=== PATIENT | female | born 1960 | race African-American/Black ===

== ENCOUNTER 2016-11-18 12:05 | Inpatient (IN) | payer OTHER ==
[2016-11-18 12:26] VITALS: BMI 26.1
[2016-11-18] MEDS ORDERED: ASPIRIN 81 MG CHEWABLE TABLETS PO ONE (12:59)
[2016-11-18] MEDS ORDERED: ASPIRIN 81 MG CHEWABLE TABLETS ONE (13:28)
--- NOTE | 2016-11-18 13:33 | PDOC ---
History of Present Illness <Jenna Ureña - Last Filed: 11/18/16 14:55> - General History Source: Patient Exam Limitations: No Limitations <Giovanni Keller - Last Filed: 11/18/16 15:20> - General Chief Complaint: Chest Pain Stated Complaint: CHEST PAIN Time Seen by Provider: 11/18/16 12:58 - History of Present Illness Initial Comments: 11/18/16 13:34 56y F hx of HTN, DM, HL, CAD s/p CABG, CVA with residual L sided weakness presents with chest pain. The pt was feeling well this morning and went to her physical therpay. After therapy as she was leaving she developed some left sided chest pressure that lasted for several minutes. Pt endorses some mild sob and nausea, There was no associated vomiting, diaphoresis. Pt notes she had simialr sypmtoms several years ago. Pt takes baby ASA (and took one this AM) Pt states she is currently pain free. PMD: Dr. العلي Cards: Gege ?Demond? (KrishnaGiovanni) Past History <Jenna Ureña - Last Filed: 11/18/16 14:55> - Past Medical History CVA: Yes (LEFT SIDED PARALYSIS) Diabetes: Yes HTN: Yes Hypercholesterolemia: Yes - Surgical History Cardiac Surgery: Yes (TRIPLE BYPASS) - Psycho/Social/Smoking Cessation Hx Suicidal Ideation: No Smoking History: Unknown if ever smoked <Giovanni Keller - Last Filed: 11/18/16 15:20> - Past Medical History Allergies/Adverse Reactions: Allergies Allergy/AdvReac Type Severity Reaction Status Date / Time codeine Allergy Verified 11/18/16 12:27 lactose AdvReac Verified 11/18/16 12:27 Home Medications: Ambulatory Orders Amlodipine Besylate [Norvasc -] 10 mg PO DAILY 11/18/16 Aspirin [ASA -] 81 mg PO DAILY 11/18/16 Atorvastatin Calcium 40 mg PO DAILY 11/18/16 Cyclobenzaprine HCl [Flexeril 10 mg] 10 mg PO TID 11/18/16 Gabapentin [Neurontin -] 300 mg PO BID 11/18/16 Isosorbide Mononitrate [Imdur -] 60 mg PO DAILY 11/18/16 Levetiracetam [Keppra] 750 mg PO BID 11/18/16 Metformin HCl [Metformin HCl ER] 500 mg PO BID 11/18/16 Metoprolol Succinate [Toprol Xl -] 25 mg PO DAILY 11/18/16 Ramipril [Altace] 10 mg PO DAILY 11/18/16 Sennosides/Docusate Sodium [Senna Plus Tablet] 1 each PO HS 11/18/16 Review of Systems <Jenna Ureña - Last Filed: 11/18/16 14:55> - Review of Systems Able to Perform ROS?: Yes <Giovanni Keller - Last Filed: 11/18/16 15:20> - Review of Systems Comments:: 11/18/16 13:40 Constitutional - no reported Fever, Chills, HEENT: no reported vision changes, sore throat Respiratory: + sob, no reported cough, hemoptysis Cardiac: +chest pain, no reported palpitations, light headedness, leg swelling Abd/GI: +nausea, no reported abd pain, vomiting, blood per rectum, melena, diarrhea : no reported dysuria, frequency, discharge Musculskelatal - no reported back pain, joint swelling skin - no reported bruising, erythema, rash neurological: no reported headache, numbness, focal weakness, tingling, ataxia, hematologic: no reported anemia, easy bruising, easy bleeding (Giovanni Keller) *Physical Exam <Jenna Ureña - Last Filed: 11/18/16 14:55> <Giovanni Keller - Last Filed: 11/18/16 15:20> - Vital Signs Last Vital Signs Temp Pulse Resp BP Pulse Ox 66 18 133/94 100 11/18/16 12:05 11/18/16 12:05 11/18/16 12:05 11/18/16 12:05 - Physical Exam Comments: 11/18/16 13:40 GENERAL: The patient is awake, alert, and fully oriented, Nontoxic - in no acute distress. HEAD: Normocephalic, atraumatic. EYES: extraocular movements intact, sclera anicteric, conjunctiva clear. ENT: Normal voice, Moist mucous membranes. NECK: Normal range of motion, supple LUNGS: Breath sounds equal, clear to auscultation bilaterally. No wheezes, no rhonchi, no rales. HEART: Regular rate and rhythm, normal S1 and S2 without murmur, rub or gallop. ABDOMEN: Soft, nontender, normoactive bowel sounds. No guarding, no rebound. . No CVA tenderness EXTREMITIES: Normal range of motion, no edema. No clubbing or cyanosis. No cords, erythema, or tenderness. NEUROLOGICAL: decraesed sensation on L face/extremities, paralysis of LUE, 4/5 weakness of LLE (chronic) PSYCH: Normal mood, flat affect. SKIN: Warm, Dry, normal turgor, (Giovanni Keller) Heart Score/ECG Review <Jenna Ureña - Last Filed: 11/18/16 14:55> <Giovanni Keller - Last Filed: 11/18/16 15:20> - ECG Impressions Comment:: 11/18/16 13:43 Twelve-lead EKG was performed and reviewed by me. There is normal sinus rhythm with a normal rate. rate of 67 Left axis deviation The intervals are normal. There is normal R wave progression (Giovanni Keller) ED Treatment Course - LABORATORY CBC & Chemistry Diagram: 11/18/16 13:20 11/18/16 13:20 <Jenna Ureña - Last Filed: 11/18/16 14:55> - LABORATORY CBC & Chemistry Diagram: 11/18/16 13:20 11/18/16 13:20 <Giovanni Keller - Last Filed: 11/18/16 15:20> - ADDITIONAL ORDERS Additional order review: Laboratory Results 11/18/16 11/18/16 13:20 13:20 INR 1.17 H Sodium 141 Potassium 4.0 Chloride 105 Carbon Dioxide 25 Anion Gap 11 BUN 15 Creatinine 0.9 Creat Clearance w eGFR > 60 Random Glucose 89 Calcium 8.4 L Magnesium 1.7 L Total Bilirubin 0.4 AST 28 ALT 27 Alkaline Phosphatase 69 Creatine Kinase 585 H CK-MB (CK-2) 2.658 Troponin I 0.03 Total Protein 7.8 Albumin 4.1 11/18/16 13:20 RBC 4.04 MCV 82.6 MCHC 34.5 RDW 13.3 MPV 7.2 L Neutrophils % 32.3 L Lymphocytes % 57.5 H Monocytes % 7.2 Eosinophils % 1.8 Basophils % 1.2 - RADIOLOGY Radiology Studies Ordered: Category Date Time Status CHEST X-RAY PORTABLE* [RAD] Stat Radiology 11/18/16 12:59 Completed Radiograph Interpretation: 11/18/16 14:11 Chest XRay As reviewed by Dr. Pavan Reddy IMPRESSION: Sternal wires. Uncoiled thoracic aorta. No evidence of widening of the superior mediastinum. The cardiac silhouette is not enlarged. No evidence of CHF, pulmonary infiltrates, large pleural effusion or pneumothorax. EKG leads are noted. Intact visualized osseous structures. (Jenna Ureña) - Medications Given in the ED: ED Medications Discontinued Medications Generic Name Dose Route Start Last Admin Trade Name Freq PRN Reason Stop Dose Admin Aspirin 162 mg 11/18/16 12:59 11/18/16 13:30 Asa - PO 11/18/16 13:00 162 mg ONCE ONE Administration Medical Decision Making <Jenna Ureña - Last Filed: 11/18/16 14:55> <Giovanni Keller - Last Filed: 11/18/16 15:20> - Medical Decision Making 11/18/16 14:44 Dr. Lagos was called at his office at 2:44. Awaiting call back. 11/18/16 14:55 Dr. Barnes, covering Dr. Lagos, returned call and spoke to Dr. Keller about the patient's care. (Jenna Ureña) 11/18/16 13:41 56y M hx of htn, hl, cva with residual waekness, cad s/p cabg presents with L sided chest pressure currently resolved pt w/. normal exam (chronic weakness) will r/o mi ekg nonischemic based on risk factors likely observation will discuss with cardiology pt given ASA 11/18/16 15:[address] mccormack agrees with observation for SANDRA will discuss w/ dr. Wiley regarding admission stable for tele 11/18/16 15:20 case kurt wiley agree with observation in tele Case discussed in detail with admitting physician including history, physical exam and ancillary studies. Admitting physician has assumed care for the patient, will follow all pending diagnostics and will complete the evaluation and treatment. (Giovanni Keller) *DC/Admit/Observation/Transfer <Jenna Ureña - Last Filed: 11/18/16 14:55> - Discharge Dispostion Admit: Yes <Giovanni Keller - Last Filed: 11/18/16 15:20> Diagnosis at time of Disposition: Chest pain Qualifiers: Chest pain type: unspecified Qualified Code(s): R07.9 - Chest pain, unspecified - Discharge Dispostion Decision to Admit order Date/Time: Decision to Admit Order Category Date Time Status Decision to Admit to Hospital Routine Admission 11/18/16 15:15 Active - Referrals Referrals: Mildred العلي MD [Primary Care Provider] - - Patient Instructions Printed Discharge Instructions: DI for Chest Pain
[2016-11-18 13:44] LABS: BASOPHIL 1.2 % (0-2.0); EOSINOPHIL 1.8 % (0-4.5); MCH 28.5 pg (25.7-33.7); MCHC 34.5 g/dl (32.0-36.0); MEAN CELL VOLUME 82.6 fl (80-96); MEAN PLT VOLUME 7.2 fl (7.5-11.1); NEUTROPHILS 32.3 % (42.8-82.8); PLATELET COUNT 198 K/MM3 (134-434); RDW 13.3 % (11.6-15.6); WHITE BLOOD COUNT 4.6 K/mm3 (4.0-10.0)
[2016-11-18 13:56] LABS: INR 1.17 (0.82-1.09); PROTHROMBIN TIME (PATIENT) 12.9 SEC (9.98-11.88)
[2016-11-18 14:23] LABS: ALBUMIN 4.1 g/dl (3.4-5.0); ANION GAP 11 (8-16); BILIRUBIN,TOTAL 0.4 mg/dL (0.2-1.0); CALCIUM 8.4 mg/dL (8.5-10.1); CO2 25 mmol/L (21-32); COCKROFT - GAULT 80.9625; CREATININE 0.9 mg/dL (0.55-1.02); GLUCOSE,RANDOM 89 mg/dL (74-106); MAGNESIUM 1.7 mg/dL (1.8-2.4); SGOT/AST 28 U/L (15-37); SGPT/ALT 27 U/L (12-78); TOT PROT 7.8 g/dl (6.4-8.2)
[2016-11-18 14:25] LABS: ALK PHOS 69 U/L (45-117); TROPONIN I 0.03 ng/ml (0.00-0.05)
--- NOTE | 2016-11-18 15:18 | EKG ---
Test Reason : Blood Pressure : / mmHG Vent. Rate : 067 BPM Atrial Rate : 067 BPM P-R Int : 150 ms QRS Dur : 092 ms QT Int : 412 ms P-R-T Axes : 027 -34 091 degrees QTc Int : 435 ms NORMAL SINUS RHYTHM POSSIBLE LEFT ATRIAL ENLARGEMENT LEFT AXIS DEVIATION ABNORMAL QRS-T ANGLE, CONSIDER PRIMARY T WAVE ABNORMALITY ABNORMAL ECG NO PREVIOUS ECGS AVAILABLE Confirmed by SHELLEY LOPEZ MD ([id number]) on 11/18/2016 3:18:01 PM Referred By: Confirmed By:SHELLEY LOPEZ MD
[2016-11-18] MEDS ORDERED: ACETAMINOPHEN 325 MG TABLET (FP) PO PRN (15:54)
--- NOTE | 2016-11-18 16:01 | HP ---
Admitting History and Physical - Primary Care Physician PCP: Mildred العلي - Admission Chief Complaint: my chest hurt History of Present Illness: Ms Naranjo is a very pleasant 56 year old female who comes in from physical therapy with chest pain. She says it was located on the left side of her chest. It was a pressure like pain. It was 8/10 in intensity. It came on with exertion , but rest did not relieve it. She is unsure if anything exacerbated or relieved it and it lasted about 30 minutes. The pain did not radiate. It was associated with lightheadedness and shortness of breath. She felt a similar pain in the past when she had an AMI. She denies passing out, dizziness, fevers , chills, coughing, palpitations, sweating, abdominal pain, nausea, vomiting, diarrhea, constipation, difficulty or pain on urination, or swelling. She has chronic L sided paralysis from previous CVA that is unchanged. History Source: Patient Limitations to Obtaining History: No Limitations - Past Medical History DOCTOR OF OPTOMETRY: Yes: CVA, Seizure Cardiovascular: Yes: CAD, HTN, Hyperlipdemia Endocrine: Yes: Diabetes Mellitus - Past Surgical History Past Surgical History: Yes: CABG, Cholecystectomy - Smoking History Smoking history: Unknown if ever smoked Have you smoked in the past 12 months: No - Alcohol/Substance Use Hx Alcohol Use: No History of Substance Use: reports: None - Social History ADL: Independent History of Recent Travel: No Home Medications - Allergies Allergies/Adverse Reactions: Allergies Allergy/AdvReac Type Severity Reaction Status Date / Time codeine Allergy Verified 11/18/16 12:27 lactose AdvReac Verified 11/18/16 12:27 - Home Medications Home Medications: Ambulatory Orders Amlodipine Besylate [Norvasc -] 10 mg PO DAILY 11/18/16 Aspirin [ASA -] 81 mg PO DAILY 11/18/16 Atorvastatin Calcium 40 mg PO DAILY 11/18/16 Cyclobenzaprine HCl [Flexeril 10 mg] 10 mg PO TID 11/18/16 Gabapentin [Neurontin -] 300 mg PO BID 11/18/16 Isosorbide Mononitrate [Imdur -] 60 mg PO DAILY 11/18/16 Levetiracetam [Keppra] 750 mg PO BID 11/18/16 Metformin HCl [Metformin HCl ER] 500 mg PO BID 11/18/16 Metoprolol Succinate [Toprol Xl -] 25 mg PO DAILY 11/18/16 Ramipril [Altace] 10 mg PO DAILY 11/18/16 Sennosides/Docusate Sodium [Senna Plus Tablet] 1 each PO HS 11/18/16 Family Disease History - Family Disease History Family Disease History: Diabetes: Grandparent, Heart Disease: Father (pacemaker) , Other: Mother (HTN) Review of Systems Findings/Remarks: Full review of systems obtained, as per HPI and otherwise negative Physical Examination Vital Signs: Vital Signs Temperature Pulse Rate 66 11/18/16 12:05 Respiratory Rate 18 11/18/16 12:05 Blood Pressure 133/94 11/18/16 12:05 O2 Sat by Pulse Oximetry (%) 100 11/18/16 12:05 Constitutional: Yes: Well Nourished, No Distress, Calm Eyes: Yes: Conjunctiva Clear, EOM Intact, PERRL HENT: Yes: Atraumatic, Normocephalic Cardiovascular: Yes: Regular Rate and Rhythm. No: Gallop, Murmur, Rub Respiratory: Yes: Regular, CTA Bilaterally. No: Rales, Rhonchi, Wheezes Gastrointestinal: Yes: Normal Bowel Sounds, Soft. No: Distention, Tenderness Extremities: Yes: WNL Edema: No ...Motor Strength: LUE (0/5), LLE (0/5) Labs: Laboratory Results - last 24 hr 11/18/16 11/18/16 11/18/16 13:20 13:20 13:20 WBC 4.6 RBC 4.04 Hgb 11.5 Hct 33.3 MCV 82.6 MCHC 34.5 RDW 13.3 Plt Count 198 MPV 7.2 L Neutrophils % 32.3 L Lymphocytes % 57.5 H Monocytes % 7.2 Eosinophils % 1.8 Basophils % 1.2 INR 1.17 H Sodium 141 Potassium 4.0 Chloride 105 Carbon Dioxide 25 Anion Gap 11 BUN 15 Creatinine 0.9 Creat Clearance w eGFR > 60 Random Glucose 89 Calcium 8.4 L Magnesium 1.7 L Total Bilirubin 0.4 AST 28 ALT 27 Alkaline Phosphatase 69 Creatine Kinase 585 H CK-MB (CK-2) 2.658 Troponin I 0.03 Total Protein 7.8 Albumin 4.1 Imaging - Results Chest X-ray: Report Reviewed, Image Reviewed EKG: Image Reviewed Problem List - Problems (1) Chest pain Assessment/Plan: -patient with history of AMI/CAD with 3v CABG in past -states pain is similar today -chest pain currently resolved -first set of enzymes negative -check cardiac enzymes x3 -monitor on telemetry -cardiology consult -will make npo in case needs stress test Code(s): R07.9 - CHEST PAIN, UNSPECIFIED Qualifiers: Chest pain type: unspecified Qualified Code(s): R07.9 - Chest pain, unspecified (2) CAD (coronary artery disease) Assessment/Plan: -will continue home medications -cardiology consulted Code(s): I25.10 - ATHSCL HEART DISEASE OF [place] CORONARY ARTERY W/O ANG PCTRS (3) HTN (hypertension) Assessment/Plan: -continue ramipril -continue toprol -continue imdur -continue norvasc Code(s): I10 - ESSENTIAL (PRIMARY) HYPERTENSION (4) Diabetes Assessment/Plan: -diabetic diet -will hold metformin in case needs contrast Code(s): E11.9 - TYPE 2 DIABETES MELLITUS WITHOUT COMPLICATIONS (5) HLD (hyperlipidemia) Assessment/Plan: -continue lipitor Code(s): E78.5 - HYPERLIPIDEMIA, UNSPECIFIED (6) CVA, old, hemiparesis Assessment/Plan: -continue aspirin and lipitor Code(s): I69.359 - HEMIPLGA FOLLOWING CEREBRAL INFARCTION AFFECTING UNSP SIDE (7) Seizure Assessment/Plan: -continue gabapentin and keppra Code(s): R56.9 - UNSPECIFIED CONVULSIONS Assessment/Plan Dispo -possible discharge tomorrow pending cardiac enzymes and cardiology evaluation
--- NOTE | 2016-11-18 18:14 | CON.CARD ---
Cardiology Consult (text) - Consultation Consultation Note: CC: CP 56 yo with h/o Coronary artery disease s/p CABG 02/2014, htn, hl, cerebrovascular disease (TIA in 2013, ischemic right posterior temporo-parietal stroke in 05/2015 with hemorrhagic conversion now with residual left sided weakness/numbness and complicated by post-CVA seizures - seeing Dr Mccarthy), lt innominate vein injury repair 08/2014, Left UE DVT s/p 6 months of coumadin, GERD, Cholecystectomy who p/w CP. CP: left sided pressure, 8/10 in intensity. It came on with exertion at physical therapy, but rest did not relieve it. Lasted 30 minutes. The pain did not radiate. It was associated with shortness of breath/choking sensation in throat. Similar to pain in the past when she had an AMI. Also has similar discomfort when she lies flat, chronic symptom. Different from prior reflux discomfort. no further cp. She denies palps, dizziness, le edema, bruner at baseline, bleeding. She denies recent fevers, chills, sweats, congestion, coughing, abdominal discomfort, nausea, vomiting, diarrhea, constipation, rashes. She has chronic L sided paralysis/numbness from previous CVA that is unchanged. recently had asa increased to 325 mg because of cerebrovascular disease. at baseline walkes with cane in the home, wheelchair outside the home. New patient to Dr. Love this year pmhx/pshx: per hpi Social history former smoker, lives by herself, gets [employer] services for 7 hrs everyday. Family Disease History: Diabetes: Grandparent, Heart Disease: Father (pacemaker) , Other: Mother (HTN) ros: per hpi - Allergies Allergies/Adverse Reactions: Allergies Allergy/AdvReac Type Severity Reaction Status Date / Time codeine Allergy Verified 11/18/16 12:27 lactose AdvReac Verified 11/18/16 12:27 Ambulatory Orders Amlodipine Besylate [Norvasc -] 10 mg PO DAILY 11/18/16 Aspirin [ASA -] 81 mg PO DAILY 11/18/16 Atorvastatin Calcium 40 mg PO DAILY 11/18/16 Cyclobenzaprine HCl [Flexeril 10 mg] 10 mg PO TID 11/18/16 Gabapentin [Neurontin -] 300 mg PO BID 11/18/16 Isosorbide Mononitrate [Imdur -] 60 mg PO DAILY 11/18/16 Levetiracetam [Keppra] 750 mg PO BID 11/18/16 Metformin HCl [Metformin HCl ER] 500 mg PO BID 11/18/16 Metoprolol Succinate [Toprol Xl -] 25 mg PO DAILY 11/18/16 Ramipril [Altace] 10 mg PO DAILY 11/18/16 Sennosides/Docusate Sodium [Senna Plus Tablet] 1 each PO HS 11/18/16 Per office notes, she is on ASA, ramipril 10mg daily, atorvastatin 20mg daily, toprol 25mg daily, imdur 60mg daily, amlodipine 10, Current Medications Acetaminophen (Tylenol -) 650 mg PO Q4H PRN PRN Reason: FEVER OR PAIN Amlodipine Besylate (Norvasc -) 10 mg PO DAILY [facility] Aspirin (Asa -) 81 mg PO DAILY [facility] Atorvastatin Calcium (Lipitor -) 40 mg PO DAILY [facility] Cyclobenzaprine HCl (Flexeril -) 10 mg PO TID [facility] Gabapentin (Neurontin -) 300 mg PO BID [facility] Isosorbide Mononitrate (Imdur -) 60 mg PO DAILY [facility] Levetiracetam (Keppra -) 750 mg PO BID [facility] Metoprolol Succinate (Toprol Xl -) 25 mg PO DAILY [facility] Ramipril (Altace -) 10 mg PO DAILY [facility] Senna/Docusate Sodium (Pericolace -) 1 tablet PO HS [facility] Vital Signs - 24 hr 11/18/16 11/18/16 12:05 17:29 Temperature 98.1 F Pulse Rate 66 67 Respiratory 18 18 Rate Blood Pressure 133/94 135/90 O2 Sat by Pulse 100 96 Oximetry (%) Intake & Output 11/16/16 11/17/16 11/18/16 11/19/16 07:59 07:59 07:59 07:59 Weight 162 lb nad, calm jvd flat, neck supple ctab, nl effort rrr nl s1, s2 no mrg + bs soft nt nd ext without e/c/c + dp/pt no carotid bruits aaox3 no jaundice, diaphoresis ++ weakness of LUE, + weakness of LLE CBC, BMP 11/18/16 13:20 11/18/16 13:20 Laboratory Tests 11/18/16 13:20 Magnesium 1.7 L Total Bilirubin 0.4 AST 28 ALT 27 Alkaline Phosphatase 69 Creatine Kinase 585 H CK-MB (CK-2) 2.658 Troponin I 0.03 Albumin 4.1 EKG: SR, LAD,non-specific t wave abnormalities, unchanged from prior office ekg' s tele: sr CXR: clear lung burger. office echo 08/2016: mod lvh. nl lv size/fn. Impaired relaxation. Can't exclude RWMA. RV not well seen. Aneurysmal IAS. 1+ tr. Nl rvsp. 56 yo with h/o Coronary artery disease s/p CABG 02/2014, htn, hl, cerebrovascular disease (TIA in 2013, ischemic right posterior temporo-parietal stroke in 05/2015 with hemorrhagic conversion now with residual left sided weakness and numbness and complicated by post-CVA seizure - seeing Dr Mccarthy), lt innominate vein injury repair 08/2014, Left UE DVT s/p 6 months of coumadin, GERD, Cholecystectomy who p/w CP. CP/CAD s/p CABG 2013 - occurred with exertion, patient high risk and with known CAD. 1st set of cardiac enzymes negative. ekg stable. Con't SANDRA. Plan for pharm stress in am. - If needs cath, will need to clarify cabg anatomy. - Elevated CK. Recent lipid panel at office shows suppressed LDL 25. Will reduce dose of atorvastatin in case it is contributing to elevated CK, chest discomfort. - con't ASA (325 per outpatient neuro for cerebrovascular disease), ramipril 10mg daily, statin, bb, imdur, norvasc. Can uptitrate anti-anginal regimen if cp recurs or stress test positive. HTN - controlled, med adjustments as mentioned. HL - recent LDL low 25, but TG elevated 219, hdl 24. Also with elevated CK. As mentioned above, will try downtitrating statin dosing unless stress test positive. - Will add lovaza for TG/HDL abnormalities and switch metoprolol to carvedilol. Check tsh. prior CVA - with residual left arm weakness - cont ASA, atorva - seizures controlled on keppra. Followed by Dr Mccarthy
[2016-11-18 21:55] LABS: TROPONIN I 0.03 ng/ml (0.00-0.05)
[2016-11-18] MEDS ORDERED: CARVEDILOL 3.125 MG TABLET (FP) ONE (21:58)
[2016-11-18] MEDS ORDERED: CYCLOBENZAPRINE HCL 10 MG TABLET (FP) ONE (21:59)
[2016-11-18] MEDS ORDERED: levETIRAcetam 500 MG TABLET (FP) PO ONE (21:59)
[2016-11-18] MEDS ORDERED: ATORVASTATIN CA 40 MG TABLET (FP) ONE (21:59)
[2016-11-18] MEDS ORDERED: PATIENT'S OWN MEDICATION (NON-FORMULARY) (Metformin Hcl [Metformin Hcl Er] 500 MG) PO SCH (22:00)
[2016-11-18] MEDS ORDERED: ATORVASTATIN CA 40 MG TABLET (FP) PO SCH (22:00)
[2016-11-18] MEDS ORDERED: GABAPENTIN 100 MG CAPSULE (FP) ONE (22:01)
[2016-11-18] MEDS: CYCLOBENZAPRINE HCL 10 MG TABLET (FP) PO SCH (22:14)
[2016-11-18] MEDS: CARVEDILOL 3.125 MG TABLET (FP) PO SCH (22:14)
[2016-11-18] MEDS: levETIRAcetam 250 MG TABLET (FP) PO SCH (22:14)
[2016-11-18] MEDS: GABAPENTIN 300 MG CAPSULE (FP) PO SCH (22:15)
[2016-11-18] MEDS: SENNOSIDES/DOCUSATE COMBO (SENNA PLUS) TABLET (UD) PO SCH (23:04)
[2016-11-18] MEDS: OMEGA-3 ACID ETHYL ESTERS (FATTY-ACIDS) 1 GM CAPSULE (FP) PO SCH (23:04)
[2016-11-18] MEDS: ATORVASTATIN CA 10 MG TABLET (FP) PO SCH (23:04)
[2016-11-19] MEDS: CYCLOBENZAPRINE HCL 10 MG TABLET (FP) PO SCH ×3 (06:48→21:26)
[2016-11-19 08:08] LABS: BASOPHIL 0.6 % (0-2.0); EOSINOPHIL 1.9 % (0-4.5); MCH 28.8 pg (25.7-33.7); MCHC 34.6 g/dl (32.0-36.0); MEAN CELL VOLUME 83.1 fl (80-96); MEAN PLT VOLUME 7.2 fl (7.5-11.1); NEUTROPHILS 38.2 % (42.8-82.8); PLATELET COUNT 183 K/MM3 (134-434); RDW 13.2 % (11.6-15.6); WHITE BLOOD COUNT 3.4 K/mm3 (4.0-10.0)
[2016-11-19 08:29] LABS: CALCIUM 8.5 mg/dL (8.5-10.1); COCKROFT - GAULT 91.086; CREATININE 0.8 mg/dL (0.55-1.02); MAGNESIUM 1.7 mg/dL (1.8-2.4); PHOSPHOROUS 3.3 mg/dL (2.5-4.9)
[2016-11-19 08:39] LABS: THYROID STIMULATING HORMONE 1.46 uIU/ml (0.358-3.74); TROPONIN I 0.03 ng/ml (0.00-0.05)
[2016-11-19] MEDS ORDERED: METOPROLOL SUCCINATE 25 MG TAB.SR.24H (FP) PO SCH (10:00)
[2016-11-19] MEDS ORDERED: DIPYRIDAMOLE STRESS TEST 42 MG in DEXTROSE 5%-WATER - 33.6 ML IVPB ONE (10:00)
[2016-11-19] MEDS ORDERED: ASPIRIN 81 MG CHEWABLE TABLETS PO SCH (10:00)
[2016-11-19] MEDS ORDERED: ISOSORBIDE MONONITRATE 60 MG TAB.SR.24H (FP) PO SCH (10:00)
[2016-11-19] MEDS ORDERED: ATORVASTATIN CA 40 MG TABLET (FP) PO SCH (10:00)
[2016-11-19] MEDS: ISOSORBIDE MONONITRATE 60 MG TAB.SR.24H (FP) PO SCH (14:45)
[2016-11-19] MEDS: OMEGA-3 ACID ETHYL ESTERS (FATTY-ACIDS) 1 GM CAPSULE (FP) PO SCH ×2 (14:45→21:26)
[2016-11-19] MEDS: CARVEDILOL 3.125 MG TABLET (FP) PO SCH ×2 (14:45→21:26)
[2016-11-19] MEDS: amLODIPine BESYLATE 10 MG TABLET (FP) PO SCH (14:45)
[2016-11-19] MEDS: GABAPENTIN 300 MG CAPSULE (FP) PO SCH ×2 (14:45→21:26)
[2016-11-19] MEDS: ASPIRIN 81 MG CHEWABLE TABLETS PO SCH (14:45)
[2016-11-19] MEDS: RAMIPRIL 5 MG CAPSULE (FP) PO SCH (14:46)
[2016-11-19] MEDS: levETIRAcetam 250 MG TABLET (FP) PO SCH ×2 (14:46→21:25)
--- NOTE | 2016-11-19 15:54 | DS ---
Physical Examination Vital Signs: Vital Signs Temperature 97.8 F 11/19/16 15:00 Pulse Rate 66 11/19/16 15:00 Respiratory Rate 20 11/19/16 15:00 Blood Pressure 127/86 11/19/16 15:00 O2 Sat by Pulse Oximetry (%) 97 11/19/16 08:00 Constitutional: Yes: Well Nourished, No Distress, Calm Cardiovascular: Yes: Regular Rate and Rhythm. No: Gallop, Murmur, Rub Respiratory: Yes: Regular, CTA Bilaterally. No: Rales, Rhonchi, Wheezes Gastrointestinal: Yes: Normal Bowel Sounds, Soft. No: Distention, Tenderness Extremities: Yes: WNL Edema: No Labs: CBC, BMP 11/19/16 07:45 11/19/16 07:45 Discharge Summary Reason For Visit: CHEST PAIN Current Active Problems CAD (coronary artery disease) (Acute) CVA, old, hemiparesis (Acute) Chest pain (Acute) Diabetes (Acute) HLD (hyperlipidemia) (Acute) HTN (hypertension) (Acute) Seizure (Acute) Hospital Course: (1) Chest pain Code(s): R07.9 - CHEST PAIN, UNSPECIFIED Qualifiers: Chest pain type: unspecified Qualified Code(s): R07.9 - Chest pain, unspecified (2) CAD (coronary artery disease) Code(s): I25.10 - ATHSCL HEART DISEASE OF [place] CORONARY ARTERY W/O ANG PCTRS (3) HTN (hypertension) Code(s): I10 - ESSENTIAL (PRIMARY) HYPERTENSION (4) Diabetes Code(s): E11.9 - TYPE 2 DIABETES MELLITUS WITHOUT COMPLICATIONS (5) HLD (hyperlipidemia) Code(s): E78.5 - HYPERLIPIDEMIA, UNSPECIFIED (6) CVA, old, hemiparesis Code(s): I69.359 - HEMIPLGA FOLLOWING CEREBRAL INFARCTION AFFECTING UNSP SIDE (7) Seizure Code(s): R56.9 - UNSPECIFIED CONVULSIONS Ms Naranjo is a very pleasant 56 year old female with history of CVA and CAD who comes in with chest pressure. She was at PT when she had a 30 minute episode of chest pressure. She presented to the ED and was admitted to telemetry under observation. Cardiac enzymes x3 were sent and negative. Her EKG was unchanged. She was seen by cardiology and underwent nuclear stress test. Was planning on discharge but cardiology reviewed and noted there was signs of ischemia. No discharge today. Condition: Good - Instructions Diet, Activity, Other Instructions: resume previous diet and activity Referrals: Bertin Love MD [Staff Physician] - Mildred لاعلي MD [Primary Care Provider] - - Home Medications Comprehensive Discharge Medication List: Ambulatory Orders Amlodipine Besylate [Norvasc -] 10 mg PO DAILY 11/18/16 Cyclobenzaprine HCl [Flexeril 10 mg] 10 mg PO TID 11/18/16 Gabapentin [Neurontin -] 300 mg PO BID 11/18/16 Isosorbide Mononitrate [Imdur -] 60 mg PO DAILY 11/18/16 Levetiracetam [Keppra] 750 mg PO BID 11/18/16 Metformin HCl [Metformin HCl ER] 500 mg PO BID 11/18/16 Ramipril [Altace] 10 mg PO DAILY 11/18/16 Sennosides/Docusate Sodium [Senna Plus Tablet] 1 each PO HS 11/18/16 Aspirin [ASA -] 325 mg PO DAILY tab.chew 11/19/16 Atorvastatin Ca [Lipitor] 5 mg PO HS #30 tablet 11/19/16 Carvedilol [Coreg -] 3.125 mg PO BID #60 tablet 11/19/16 [place]-3 Acid Ethyl Esters [Lovaza -] 2 gm PO BID #60 cap 11/19/16
--- NOTE | 2016-11-19 20:18 | PN ---
Progress Note (short form) - Note Progress Note: CC: CP S: + stress test today. No further cp. No sob, palps, dizziness Current Medications Acetaminophen (Tylenol -) 650 mg PO Q4H PRN PRN Reason: FEVER OR PAIN Amlodipine Besylate (Norvasc -) 10 mg PO DAILY [facility] Last Admin: 11/19/16 14:45 Dose: 10 mg Aspirin (Asa -) 325 mg PO DAILY [facility] Last Admin: 11/19/16 14:45 Dose: 325 mg Atorvastatin Calcium (Lipitor -) 5 mg PO HS [facility] Last Admin: 11/18/16 23:04 Dose: 5 mg Carvedilol (Coreg -) 3.125 mg PO BID [facility] Last Admin: 11/19/16 14:45 Dose: 3.125 mg Cyclobenzaprine HCl (Flexeril -) 10 mg PO TID [facility] Last Admin: 11/19/16 14:45 Dose: 10 mg Gabapentin (Neurontin -) 300 mg PO BID [facility] Last Admin: 11/19/16 14:45 Dose: 300 mg Isosorbide Mononitrate (Imdur -) 60 mg PO DAILY [facility] Last Admin: 11/19/16 14:45 Dose: 60 mg Levetiracetam (Keppra -) 750 mg PO BID [facility] Last Admin: 11/19/16 14:46 Dose: 750 mg Eakzo-3-Oovg Ethyl Esters (Lovaza -) 2 gm PO BID [facility] Last Admin: 11/19/16 14:45 Dose: 2 gm Ramipril (Altace -) 10 mg PO DAILY [facility] Last Admin: 11/19/16 14:46 Dose: 10 mg Senna/Docusate Sodium (Pericolace -) 1 tablet PO [facility] Last Admin: 11/18/16 23:04 Dose: 1 tablet Vital Signs - 24 hr 11/18/16 11/19/16 11/19/16 22:45 01:05 06:00 Temperature 98.2 F Pulse Rate 62 Pulse Rate [ 72 Apical] Respiratory 16 20 Rate Blood Pressure 128/85 Blood Pressure 144/98 [Right Arm] O2 Sat by Pulse 100 95 Oximetry (%) 11/19/16 11/19/16 11/19/16 07:56 08:00 15:00 Temperature 98.1 F 97.8 F Pulse Rate 55 L 66 Pulse Rate [ Apical] Respiratory 20 20 20 Rate Blood Pressure 123/77 127/86 Blood Pressure [Right Arm] O2 Sat by Pulse 97 Oximetry (%) 11/19/16 18:00 Temperature 97.9 F Pulse Rate 63 Pulse Rate [ Apical] Respiratory 20 Rate Blood Pressure 118/70 Blood Pressure [Right Arm] O2 Sat by Pulse Oximetry (%) Intake & Output 11/17/16 11/18/16 11/19/16 11/20/16 07:59 07:59 07:59 07:59 Intake Total 350 Balance 350 Weight 162 lb nad, calm jvd flat, neck supple ctab, nl effort rrr nl s1, s2 no mrg + bs soft nt nd ext without e/c/c + dp/pt no carotid bruits aaox3 no jaundice, diaphoresis ++ weakness of LUE, + weakness of LLE CBC, BMP 11/19/16 07:45 11/19/16 07:45 Laboratory Tests 11/18/16 11/19/16 21:07 07:45 Magnesium 1.7 L Creatine Kinase 551 H 490 H CK-MB (CK-2) 2.148 1.757 Troponin I 0.03 0.03 TSH 1.46 EKG: SR, LAD,non-specific t wave abnormalities, unchanged from prior office ekg' s tele: sr, pvc CXR: clear lung burger. stress: mod sized, mild intensity anterior ischemia. mild inferior ischemia. nl EF. office echo 08/2016: mod lvh. nl lv size/fn. Impaired relaxation. nl rv size/ fn. Aneurysmal IAS. 1+ tr. Nl rvsp. 56 yo with h/o Coronary artery disease s/p CABG with lt innominate vein injury repair 08/2014, NSTEMI 02/2014, htn, hl, cerebrovascular disease (TIA in 2013, ischemic right posterior temporo-parietal stroke in 05/2015 with hemorrhagic conversion now with residual left sided weakness/numbness and complicated by post-CVA seizures - seeing Dr Mccarthy), Left UE DVT s/p 6 months of coumadin, GERD, Cholecystectomy who p/w CP. CP/CAD s/p CABG 08/2014 - obtained medical records from [facility]: CABG details --> LAD-LINTON, sVG- OM1, SVG-OM2, SVG-PDA. Of note, severe LVH described in op report. - Cardiac enzymes negative. ekg stable. - CP occurred with exertion, patient high risk and with known CAD. + stress test with both anterior and inferior ischemia. Discussed case with both outpatient machine pack assembler and interventionalist. Will plan for cath on Tuesday. CABG anatomy clarified as mentioned above. - Elevated CK. Recent lipid panel at office shows suppressed LDL 25. Will reduce dose of atorvastatin in case it is contributing to elevated CK, chest discomfort. - con't ASA (325 per outpatient neuro for cerebrovascular disease), ramipril 10mg daily, statin, bb, imdur, norvasc. Can uptitrate anti-anginal regimen if cp recurs. HTN - controlled, on current meds. HL - recent LDL low 25, but TG elevated 219, hdl 24. Also with elevated CK. As mentioned above, --> downtitrated statin dosing here. (since stress test positive will increase back to 20 mg daily) - added lovaza for TG/HDL abnormalities and switched metoprolol to carvedilol. tsh wnl prior CVA - with residual left arm weakness - cont ASA, atorva - seizures controlled on keppra. Followed by Dr Mccarthy as outpatient
[2016-11-19] MEDS: SENNOSIDES/DOCUSATE COMBO (SENNA PLUS) TABLET (UD) PO SCH (21:26)
[2016-11-19] MEDS: ATORVASTATIN CA 10 MG TABLET (FP) PO SCH (21:26)
[2016-11-20] MEDS: CYCLOBENZAPRINE HCL 10 MG TABLET (FP) PO SCH ×3 (06:19→22:52)
[2016-11-20 08:06] LABS: CALCIUM 8.4 mg/dL (8.5-10.1)
[2016-11-20 08:10] LABS: COCKROFT - GAULT 80.9625; CREATININE 0.9 mg/dL (0.55-1.02); MAGNESIUM 1.9 mg/dL (1.8-2.4)
--- NOTE | 2016-11-20 08:17 | PN ---
Progress Note, Physician Chief Complaint: cp, cad History of Present Illness: no cp or sob denies palpitations, leg swelling - Current Medication List Current Medications: Active Medications Acetaminophen (Tylenol -) 650 mg PO Q4H PRN PRN Reason: FEVER OR PAIN Amlodipine Besylate (Norvasc -) [address] [facility] Last Admin: 11/19/16 14:45 Dose: 10 mg Aspirin (Asa -) [address] [facility] Last Admin: 11/19/16 14:45 Dose: 325 mg Atorvastatin Calcium (Lipitor -) 20 mg PO [facility] Carvedilol (Coreg -) 3.[address] [facility] Last Admin: 11/19/16 21:26 Dose: 3.125 mg Cyclobenzaprine HCl (Flexeril -) [address] [facility] Last Admin: 11/20/16 06:19 Dose: 10 mg Gabapentin (Neurontin -) [address] [facility] Last Admin: 11/19/16 21:26 Dose: 300 mg Isosorbide Mononitrate (Imdur -) [address] [facility] Last Admin: 11/19/16 14:45 Dose: 60 mg Levetiracetam (Keppra -) [address] [facility] Last Admin: 11/19/16 21:25 Dose: 750 mg Magnesium Oxide (Mag-Ox -) [address] [facility] Wwuhz-2-Rtvy Ethyl Esters (Lovaza -) [address] [facility] Last Admin: 11/19/16 21:26 Dose: 2 gm Ramipril (Altace -) [address] [facility] Last Admin: 11/19/16 14:46 Dose: 10 mg Senna/Docusate Sodium (Pericolace -) 1 tablet PO [facility] Last Admin: 11/19/16 21:26 Dose: 1 tablet - Objective Vital Signs: Vital Signs Temperature 97.6 F 11/20/16 05:49 Pulse Rate 58 L 11/20/16 05:49 Respiratory Rate 20 11/20/16 05:49 Blood Pressure 114/69 11/20/16 05:49 O2 Sat by Pulse Oximetry (%) 97 11/20/16 01:00 Constitutional: Yes: Well Nourished, No Distress, Calm Cardiovascular: Yes: Regular Rate and Rhythm, S1, S2. No: Gallop, Murmur Respiratory: Yes: Regular, CTA Bilaterally. No: Accessory Muscle Use, Rales, Wheezes Extremities: No: Cold Edema: No Neurological: Yes: Alert, Oriented Psychiatric: No: Agitated Labs: CBC, BMP 11/19/16 07:45 INR, PTT INR 1.17 (0.82-1.09) H 11/18/16 13:20 - ....Imaging EKG: Other (tele: NSR) Assessment/Plan EKG: SR, LAD,non-specific t wave abnormalities, unchanged from prior office ekg' s tele: sr, pvc CXR: clear lung burger. MPI here 11/27: mod sized, mild intensity anterior ischemia. mild inferior ischemia. nl EF. office echo 08/2016: mod lvh. nl lv size/fn. Impaired relaxation. nl rv size/ fn. Aneurysmal IAS. 1+ tr. Nl rvsp. 56 yo with h/o NSTEMI 2013 (PCI then?), coronary artery disease s/p CABG with lt innominate vein injury repair 08/2014, htn, hpl, cerebrovascular disease ( TIA in 2013, ischemic right posterior temporo-parietal stroke in 05/2015 with hemorrhagic conversion now with residual left sided weakness/numbness and complicated by post-CVA seizures - seeing Dr Mccarthy), Left UE DVT s/p 6 months of coumadin, GERD, Cholecystectomy who p/w CP. CP/CAD s/p CABG 08/2014 - obtained medical records [facility]: CABG details --> LAD-LINTON, SVG- OM1, SVG-OM2, SVG-PDA. - trop negative x3. ekg stable vs prior. - CP occurred with exertion, patient high risk and with known CAD. + stress test with both anterior and inferior ischemia. Dr Traore discussed case with both outpatient trade analyst (juan a) and interventionalist--plan for cath on Tuesday. - con't ASA (325 mg, per outpatient neuro for cerebrovascular disease), ramipril 10mg daily, statin, bb, imdur, norvasc. Can uptitrate anti-anginal regimen if cp recurs--currently asymptomatic HTN - controlled, on current meds. HL - recent LDL low 25, but TG elevated 219, hdl 24. Also with elevated CK --> downtitrated statin dosing here. (since stress test positive will increase back to 20 mg daily) - added lovaza for TG/HDL abnormalities and switched metoprolol to carvedilol. prior CVA - with residual left arm weakness - cont ASA, atorva - seizures controlled on keppra. Followed by Dr Mccarthy as outpatient
[2016-11-20] MEDS: OMEGA-3 ACID ETHYL ESTERS (FATTY-ACIDS) 1 GM CAPSULE (FP) PO SCH ×2 (09:57→22:52)
[2016-11-20] MEDS: MAGNESIUM OXIDE 400 MG TABLET (FP) PO SCH ×2 (09:57→22:53)
[2016-11-20] MEDS: amLODIPine BESYLATE 10 MG TABLET (FP) PO SCH (09:57)
[2016-11-20] MEDS: ISOSORBIDE MONONITRATE 60 MG TAB.SR.24H (FP) PO SCH (09:57)
[2016-11-20] MEDS: RAMIPRIL 5 MG CAPSULE (FP) PO SCH (09:57)
[2016-11-20] MEDS: levETIRAcetam 250 MG TABLET (FP) PO SCH ×2 (09:57→22:52)
[2016-11-20] MEDS: ASPIRIN 81 MG CHEWABLE TABLETS PO SCH (09:58)
[2016-11-20] MEDS: GABAPENTIN 300 MG CAPSULE (FP) PO SCH ×2 (09:59→22:53)
[2016-11-20] MEDS: CARVEDILOL 3.125 MG TABLET (FP) PO SCH ×2 (09:59→22:52)
--- NOTE | 2016-11-20 10:27 | PN ---
Progress Note, Physician History of Present Illness: Denies any chest pain, still notes occasionally gets chest "pressure" though. Stress test returned positive, so d/c home was cancelled and to be transferred for cardiac cath. - Current Medication List Current Medications: Active Medications Acetaminophen (Tylenol -) 650 mg PO Q4H PRN PRN Reason: FEVER OR PAIN Amlodipine Besylate (Norvasc -) 10 mg PO DAILY [facility] Last Admin: 11/20/16 09:57 Dose: 10 mg Aspirin (Asa -) 325 mg PO DAILY [facility] Last Admin: 11/20/16 09:58 Dose: 325 mg Atorvastatin Calcium (Lipitor -) 20 mg PO [facility] Carvedilol (Coreg -) 3.125 mg PO BID [facility] Last Admin: 11/20/16 09:59 Dose: 3.125 mg Cyclobenzaprine HCl (Flexeril -) 10 mg PO TID [facility] Last Admin: 11/20/16 06:19 Dose: 10 mg Gabapentin (Neurontin -) 300 mg PO BID [facility] Last Admin: 11/20/16 09:59 Dose: 300 mg Insulin Aspart (Novolog Vial Sliding Scale -) [facility] PRN Reason: Protocol Isosorbide Mononitrate (Imdur -) 60 mg PO DAILY [facility] Last Admin: 11/20/16 09:57 Dose: 60 mg Levetiracetam (Keppra -) 750 mg PO BID [facility] Last Admin: 11/20/16 09:57 Dose: 750 mg Magnesium Oxide (Mag-Ox -) 400 mg PO BID [facility] Last Admin: 11/20/16 09:57 Dose: 400 mg Spchp-6-Hmjq Ethyl Esters (Lovaza -) 2 gm PO BID [facility] Last Admin: 11/20/16 09:57 Dose: 2 gm Ramipril (Altace -) 10 mg PO DAILY [facility] Last Admin: 11/20/16 09:57 Dose: 10 mg Senna/Docusate Sodium (Pericolace -) 1 tablet PO [facility] Last Admin: 11/19/16 21:26 Dose: 1 tablet - Objective Vital Signs: Vital Signs Temperature 97.6 F 11/20/16 05:49 Pulse Rate 58 L 11/20/16 05:49 Respiratory Rate 20 11/20/16 05:49 Blood Pressure 114/69 11/20/16 05:49 O2 Sat by Pulse Oximetry (%) 97 11/20/16 01:00 Constitutional: Yes: No Distress, Calm Eyes: Yes: Conjunctiva Clear, EOM Intact Cardiovascular: Yes: Regular Rate and Rhythm, S1, S2. No: Murmur Respiratory: Yes: Regular, CTA Bilaterally. No: Rales, Rhonchi, Wheezes Gastrointestinal: Yes: Normal Bowel Sounds, Soft. No: Distention, Tenderness Edema: No Neurological: Yes: Pre-Existing Deficit (left UE weakness) Labs: CBC, BMP 11/19/16 07:45 11/20/16 05:42 INR, PTT INR 1.17 (0.82-1.09) H 11/18/16 13:20 Assessment/Plan Current Active Problems CAD (coronary artery disease) (Acute) CVA, old, hemiparesis (Acute) Chest pain (Acute) Diabetes (Acute) HLD (hyperlipidemia) (Acute) HTN (hypertension) (Acute) Seizure (Acute) -with positive stress test to be transferred for cardiac cath instead of d/c home -continue tele monitor here for angina
[2016-11-20] MEDS: INSULIN SLIDING SCALE (NOVOLOG) 1 VIAL SQ SCH (17:22)
[2016-11-20] MEDS: ATORVASTATIN CA 20 MG TABLET (FP) PO SCH (22:52)
[2016-11-20] MEDS: SENNOSIDES/DOCUSATE COMBO (SENNA PLUS) TABLET (UD) PO SCH (22:53)
[2016-11-21] MEDS: CYCLOBENZAPRINE HCL 10 MG TABLET (FP) PO SCH ×3 (06:23→22:23)
[2016-11-21] MEDS: INSULIN SLIDING SCALE (NOVOLOG) 1 VIAL SQ SCH ×2 (06:27→17:18)
--- NOTE | 2016-11-21 08:33 | PN ---
Progress Note, Physician Chief Complaint: cp History of Present Illness: no cp or sob. no palpit, syncope - Current Medication List Current Medications: Active Medications Acetaminophen (Tylenol -) 650 mg PO Q4H PRN PRN Reason: FEVER OR PAIN Amlodipine Besylate (Norvasc -) 10 mg PO DAILY [facility] Last Admin: 11/20/16 09:57 Dose: 10 mg Aspirin (Asa -) 325 mg PO DAILY [facility] Last Admin: 11/20/16 09:58 Dose: 325 mg Atorvastatin Calcium (Lipitor -) 20 mg PO HS [facility] Last Admin: 11/20/16 22:52 Dose: 20 mg Carvedilol (Coreg -) 3.125 mg PO BID [facility] Last Admin: 11/20/16 22:52 Dose: 3.125 mg Cyclobenzaprine HCl (Flexeril -) 10 mg PO TID [facility] Last Admin: 11/21/16 06:23 Dose: 10 mg Gabapentin (Neurontin -) 300 mg PO BID [facility] Last Admin: 11/20/16 22:53 Dose: 300 mg Insulin Aspart (Novolog Vial Sliding Scale -) 1 vial SQ BIDAC [facility] PRN Reason: Protocol Last Admin: 11/21/16 06:27 Dose: Not Given Isosorbide Mononitrate (Imdur -) 60 mg PO DAILY [facility] Last Admin: 11/20/16 09:57 Dose: 60 mg Levetiracetam (Keppra -) 750 mg PO BID [facility] Last Admin: 11/20/16 22:52 Dose: 750 mg Magnesium Oxide (Mag-Ox -) 400 mg PO BID [facility] Last Admin: 11/20/16 22:53 Dose: 400 mg Amhai-5-Cvwg Ethyl Esters (Lovaza -) 2 gm PO BID [facility] Last Admin: 11/20/16 22:52 Dose: 2 gm Ramipril (Altace -) 10 mg PO DAILY [facility] Last Admin: 11/20/16 09:57 Dose: 10 mg Senna/Docusate Sodium (Pericolace -) 1 tablet PO HS [facility] Last Admin: 11/20/16 22:53 Dose: 1 tablet - Objective Vital Signs: Vital Signs Temperature 97.3 F L 11/21/16 06:00 Pulse Rate 68 11/21/16 06:00 Respiratory Rate 18 11/21/16 06:00 Blood Pressure 129/71 11/21/16 06:00 O2 Sat by Pulse Oximetry (%) 96 11/21/16 01:00 Constitutional: Yes: Well Nourished, No Distress, Calm Cardiovascular: Yes: Regular Rate and Rhythm, S1, S2. No: Gallop, Murmur Respiratory: Yes: Regular, CTA Bilaterally, Accessory Muscle Use. No: Rales, Wheezes Extremities: No: Cold Edema: No Neurological: Yes: Alert, Oriented Psychiatric: No: Agitated Labs: CBC, BMP 11/19/16 07:45 11/20/16 05:42 INR, PTT INR 1.17 (0.82-1.09) H 11/18/16 13:20 - ....Imaging EKG: Other (tele: NSR) Assessment/Plan EKG: SR, LAD,non-specific t wave abnormalities, unchanged from prior office ekg' s tele: sr, pvc CXR: clear lung burger. MPI here 11/27: mod sized, mild intensity anterior ischemia. mild inferior ischemia. nl EF. office echo 08/2016: mod lvh. nl lv size/fn. Impaired relaxation. nl rv size/ fn. Aneurysmal IAS. 1+ tr. Nl rvsp. 56 yo with h/o NSTEMI 2013 (PCI then?), coronary artery disease s/p CABG with lt innominate vein injury repair 08/2014, htn, hpl, cerebrovascular disease ( TIA in 2013, ischemic right posterior temporo-parietal stroke in 05/2015 with hemorrhagic conversion now with residual left sided weakness/numbness and complicated by post-CVA seizures - seeing Dr Mccarthy), Left UE DVT s/p 6 months of coumadin, GERD, Cholecystectomy who p/w CP. CP/CAD s/p CABG 08/2014 - obtained medical records [facility]: CABG details --> LAD-LINTON, SVG- OM1, SVG-OM2, SVG-PDA. - trop negative x3. ekg stable vs prior. - CP occurred with exertion, patient high risk and with known CAD. + stress test with both anterior and inferior ischemia. - pt [facility] - con't ASA (325 mg, per outpatient neuro for cerebrovascular disease), ramipril 10mg daily, statin, bb, imdur, norvasc. Can uptitrate anti-anginal regimen if cp recurs--currently asymptomatic HTN - controlled, on current meds. HL - recent LDL low 25, but TG elevated 219, hdl 24. Also with elevated CK --> downtitrated statin dosing here. (since stress test positive will increase back to 20 mg daily) - added lovaza for TG/HDL abnormalities and switched metoprolol to carvedilol. prior CVA - with residual left arm weakness - cont ASA, atorva - seizures controlled on keppra. Followed by Dr Mccarthy as outpatient
[2016-11-21] MEDS: ASPIRIN 81 MG CHEWABLE TABLETS PO SCH (10:04)
[2016-11-21] MEDS: RAMIPRIL 5 MG CAPSULE (FP) PO SCH (10:04)
[2016-11-21] MEDS: levETIRAcetam 250 MG TABLET (FP) PO SCH ×2 (10:05→22:23)
[2016-11-21] MEDS: OMEGA-3 ACID ETHYL ESTERS (FATTY-ACIDS) 1 GM CAPSULE (FP) PO SCH ×2 (10:05→22:23)
[2016-11-21] MEDS: ISOSORBIDE MONONITRATE 60 MG TAB.SR.24H (FP) PO SCH (10:05)
[2016-11-21] MEDS: GABAPENTIN 300 MG CAPSULE (FP) PO SCH ×2 (10:05→22:23)
[2016-11-21] MEDS: MAGNESIUM OXIDE 400 MG TABLET (FP) PO SCH ×2 (10:05→22:23)
[2016-11-21] MEDS: amLODIPine BESYLATE 10 MG TABLET (FP) PO SCH (10:05)
[2016-11-21] MEDS: CARVEDILOL 3.125 MG TABLET (FP) PO SCH ×2 (10:05→22:23)
--- NOTE | 2016-11-21 10:05 | PN ---
Progress Note, Physician History of Present Illness: Denies any chest pressure or problems overnight. No shortness of breath. - Current Medication List Current Medications: Active Medications Acetaminophen (Tylenol -) 650 mg PO Q4H PRN PRN Reason: FEVER OR PAIN Amlodipine Besylate (Norvasc -) 10 mg PO DAILY [facility] Last Admin: 11/20/16 09:57 Dose: 10 mg Aspirin (Asa -) 325 mg PO DAILY [facility] Last Admin: 11/20/16 09:58 Dose: 325 mg Atorvastatin Calcium (Lipitor -) 20 mg PO HS [facility] Last Admin: 11/20/16 22:52 Dose: 20 mg Carvedilol (Coreg -) 3.125 mg PO BID [facility] Last Admin: 11/20/16 22:52 Dose: 3.125 mg Cyclobenzaprine HCl (Flexeril -) 10 mg PO TID [facility] Last Admin: 11/21/16 06:23 Dose: 10 mg Gabapentin (Neurontin -) 300 mg PO BID [facility] Last Admin: 11/20/16 22:53 Dose: 300 mg Insulin Aspart (Novolog Vial Sliding Scale -) 1 vial SQ BIDAC [facility] PRN Reason: Protocol Last Admin: 11/21/16 06:27 Dose: Not Given Isosorbide Mononitrate (Imdur -) 60 mg PO DAILY [facility] Last Admin: 11/20/16 09:57 Dose: 60 mg Levetiracetam (Keppra -) 750 mg PO BID [facility] Last Admin: 11/20/16 22:52 Dose: 750 mg Magnesium Oxide (Mag-Ox -) 400 mg PO BID [facility] Last Admin: 11/20/16 22:53 Dose: 400 mg Mqndb-5-Gtfk Ethyl Esters (Lovaza -) 2 gm PO BID [facility] Last Admin: 11/20/16 22:52 Dose: 2 gm Ramipril (Altace -) 10 mg PO DAILY [facility] Last Admin: 11/20/16 09:57 Dose: 10 mg Senna/Docusate Sodium (Pericolace -) 1 tablet PO HS [facility] Last Admin: 11/20/16 22:53 Dose: 1 tablet - Objective Vital Signs: Vital Signs Temperature 97.3 F L 11/21/16 06:00 Pulse Rate 68 11/21/16 06:00 Respiratory Rate 18 11/21/16 06:00 Blood Pressure 129/71 11/21/16 06:00 O2 Sat by Pulse Oximetry (%) 96 11/21/16 01:00 Constitutional: Yes: No Distress, Calm Neck: Yes: Supple, Trachea Midline Cardiovascular: Yes: Regular Rate and Rhythm, S1, S2. No: Murmur Respiratory: Yes: Regular, CTA Bilaterally. No: Rales, Rhonchi, Wheezes Gastrointestinal: Yes: Normal Bowel Sounds, Soft. No: Distention, Tenderness Neurological: Yes: Pre-Existing Deficit (left hemiparesis) Labs: CBC, BMP 11/19/16 07:45 11/20/16 05:42 INR, PTT INR 1.17 (0.82-1.09) H 11/18/16 13:20 Assessment/Plan Current Active Problems CAD (coronary artery disease) (Acute) CVA, old, hemiparesis (Acute) Chest pain (Acute) Diabetes (Acute) HLD (hyperlipidemia) (Acute) HTN (hypertension) (Acute) Seizure (Acute) -awaiting transfer for cardiac cath -cont current meds/ tele monitoring
[2016-11-21] MEDS: ATORVASTATIN CA 20 MG TABLET (FP) PO SCH (22:23)
[2016-11-21] MEDS: SENNOSIDES/DOCUSATE COMBO (SENNA PLUS) TABLET (UD) PO SCH (22:23)
[2016-11-22] MEDS: CYCLOBENZAPRINE HCL 10 MG TABLET (FP) PO SCH ×3 (06:02→23:56)
[2016-11-22] MEDS: INSULIN SLIDING SCALE (NOVOLOG) 1 VIAL SQ SCH ×2 (06:03→17:09)
[2016-11-22 08:00] LABS: BASOPHIL 0.4 % (0-2.0); EOSINOPHIL 2.4 % (0-4.5); MCHC 34.5 g/dl (32.0-36.0); MEAN CELL VOLUME 84.2 fl (80-96); MEAN PLT VOLUME 7.5 fl (7.5-11.1); NEUTROPHILS 40.5 % (42.8-82.8); PLATELET COUNT 207 K/MM3 (134-434); RDW 13.1 % (11.6-15.6); WHITE BLOOD COUNT 3.5 K/mm3 (4.0-10.0)
[2016-11-22 08:35] LABS: ALBUMIN 3.9 g/dl (3.4-5.0); ALK PHOS 65 U/L (45-117); ANION GAP 11 (8-16); BILIRUBIN,TOTAL 0.3 mg/dL (0.2-1.0); CALCIUM 9.5 mg/dL (8.5-10.1); CO2 27 mmol/L (21-32); COCKROFT - GAULT 80.9625; CREATININE 0.9 mg/dL (0.55-1.02); GLUCOSE,RANDOM 99 mg/dL (74-106); SGOT/AST 19 U/L (15-37); SGPT/ALT 24 U/L (12-78); TOT PROT 7.5 g/dl (6.4-8.2)
[2016-11-22] MEDS: OMEGA-3 ACID ETHYL ESTERS (FATTY-ACIDS) 1 GM CAPSULE (FP) PO SCH ×2 (09:05→23:57)
[2016-11-22] MEDS: levETIRAcetam 250 MG TABLET (FP) PO SCH ×2 (09:05→23:56)
[2016-11-22] MEDS: amLODIPine BESYLATE 10 MG TABLET (FP) PO SCH (09:05)
[2016-11-22] MEDS: RAMIPRIL 5 MG CAPSULE (FP) PO SCH (09:05)
[2016-11-22] MEDS: ISOSORBIDE MONONITRATE 60 MG TAB.SR.24H (FP) PO SCH (09:08)
[2016-11-22] MEDS: CARVEDILOL 3.125 MG TABLET (FP) PO SCH ×2 (09:08→23:56)
[2016-11-22] MEDS: GABAPENTIN 300 MG CAPSULE (FP) PO SCH ×2 (09:08→23:57)
[2016-11-22] MEDS: MAGNESIUM OXIDE 400 MG TABLET (FP) PO SCH ×2 (09:08→23:56)
--- NOTE | 2016-11-22 10:02 | PN ---
Progress Note (short form) - Note Progress Note: Chief Complaint: cp History of Present Illness: no cp or sob. no palpit, syncope Current Medications Acetaminophen (Tylenol -) 650 mg PO Q4H PRN PRN Reason: FEVER OR PAIN Amlodipine Besylate (Norvasc -) 10 mg PO DAILY [facility] Last Admin: 11/22/16 09:05 Dose: 10 mg Aspirin (Asa -) 325 mg PO DAILY [facility] Last Admin: 11/22/16 11:22 Dose: 325 mg Atorvastatin Calcium (Lipitor -) 20 mg PO HS [facility] Last Admin: 11/21/16 22:23 Dose: 20 mg Carvedilol (Coreg -) 3.125 mg PO BID [facility] Last Admin: 11/22/16 09:08 Dose: 3.125 mg Cyclobenzaprine HCl (Flexeril -) 10 mg PO TID [facility] Last Admin: 11/22/16 06:02 Dose: 10 mg Gabapentin (Neurontin -) 300 mg PO BID [facility] Last Admin: 11/22/16 09:08 Dose: 300 mg Insulin Aspart (Novolog Vial Sliding Scale -) 1 vial SQ BIDAC [facility] PRN Reason: Protocol Last Admin: 11/22/16 06:03 Dose: Not Given Isosorbide Mononitrate (Imdur -) 60 mg PO DAILY [facility] Last Admin: 11/22/16 09:08 Dose: 60 mg Levetiracetam (Keppra -) 750 mg PO BID [facility] Last Admin: 11/22/16 09:05 Dose: 750 mg Magnesium Oxide (Mag-Ox -) 400 mg PO BID [facility] Last Admin: 11/22/16 09:08 Dose: 400 mg Ciggs-0-Npyk Ethyl Esters (Lovaza -) 2 gm PO BID [facility] Last Admin: 11/22/16 09:05 Dose: 2 gm Ramipril (Altace -) 10 mg PO DAILY [facility] Last Admin: 11/22/16 09:05 Dose: 10 mg Senna/Docusate Sodium (Pericolace -) 1 tablet PO HS [facility] Last Admin: 11/21/16 22:23 Dose: 1 tablet Vital Signs - 24 hr 11/21/16 11/21/16 11/21/16 14:00 17:00 22:00 Temperature 97.7 F 97.6 F Pulse Rate 73 75 Respiratory 20 20 Rate Blood Pressure 108/74 130/83 O2 Sat by Pulse 97 Oximetry (%) 11/22/16 11/22/16 11/22/16 02:15 06:00 08:00 Temperature 97.6 F 97.8 F 98.2 F Pulse Rate 69 62 82 Respiratory 20 20 14 Rate Blood Pressure 120/81 118/75 130/90 O2 Sat by Pulse Oximetry (%) 11/22/16 09:00 Temperature Pulse Rate Respiratory Rate Blood Pressure O2 Sat by Pulse 96 Oximetry (%) Intake & Output 11/20/16 11/21/16 11/22/16 11/23/16 07:59 07:59 07:59 07:59 Intake Total 570 1250 1090 Balance 570 1250 1090 Constitutional: Yes: Well Nourished, No Distress, Calm Cardiovascular: Yes: Regular Rate and Rhythm, S1, S2. No: Gallop, Murmur Respiratory: Yes: Regular, CTA Bilaterally, Accessory Muscle Use. No: Rales, Wheezes Extremities: No: Cold Edema: No Neurological: Yes: Alert, Oriented Psychiatric: No: Agitated Labs: - ....Imaging EKG: Other (tele: NSR) Assessment/Plan EKG: SR, LAD,non-specific t wave abnormalities, unchanged from prior office ekg' s tele: sr, pvc CXR: clear lung burger. MPI here 11/27: mod sized, mild intensity anterior ischemia. mild inferior ischemia. nl EF. office echo 08/2016: mod lvh. nl lv size/fn. Impaired relaxation. nl rv size/ fn. Aneurysmal IAS. 1+ tr. Nl rvsp. 56 yo with h/o NSTEMI 2013 (PCI then?), coronary artery disease s/p CABG with lt innominate vein injury repair 08/2014, htn, hpl, cerebrovascular disease ( TIA in 2013, ischemic right posterior temporo-parietal stroke in 05/2015 with hemorrhagic conversion now with residual left sided weakness/numbness and complicated by post-CVA seizures - seeing Dr Mccarthy), Left UE DVT s/p 6 months of coumadin, GERD, Cholecystectomy who p/w CP/unstable angina. CP/unstable angina/CAD s/p CABG 08/2014 - obtained medical records from [facility]: CABG details --> LAD-LINTON, SVG- OM1, SVG-OM2, SVG-PDA. - trop negative x3. ekg stable vs prior. - CP occurred with exertion, patient high risk and with known CAD. + stress test with both anterior and inferior ischemia. - transfer today to [facility] for cath. - con't ASA (325 mg, per outpatient neuro for cerebrovascular disease), ramipril 10mg daily, statin, bb, imdur, norvasc. - Can uptitrate anti-anginal regimen if cp recurs--currently asymptomatic HTN - controlled, on current meds. HL - recent LDL low 25, but TG elevated 219, hdl 24. Also with elevated CK --> downtitrated statin dosing here. (since stress test positive increased back to 20 mg daily) - added lovaza for TG/HDL abnormalities and switched metoprolol to carvedilol. prior CVA - with residual left arm weakness - cont ASA, atorva - seizures controlled on keppra. Followed by Dr Mccarthy as outpatient
[2016-11-22] MEDS: ASPIRIN 325 MG TABLET PO SCH (11:22)
--- NOTE | 2016-11-22 15:48 | PN ---
Progress Note, Physician Chief Complaint: Ms Naranjo is without complaint. No cp, sob, n/v - Current Medication List Current Medications: Active Medications Acetaminophen (Tylenol -) 650 mg PO Q4H PRN PRN Reason: FEVER OR PAIN Amlodipine Besylate (Norvasc -) 10 mg PO DAILY [facility] Last Admin: 11/22/16 09:05 Dose: 10 mg Aspirin (Asa -) 325 mg PO DAILY [facility] Last Admin: 11/22/16 11:22 Dose: 325 mg Atorvastatin Calcium (Lipitor -) 20 mg PO HS [facility] Last Admin: 11/21/16 22:23 Dose: 20 mg Carvedilol (Coreg -) 3.125 mg PO BID [facility] Last Admin: 11/22/16 09:08 Dose: 3.125 mg Cyclobenzaprine HCl (Flexeril -) 10 mg PO TID [facility] Last Admin: 11/22/16 13:15 Dose: 10 mg Gabapentin (Neurontin -) 300 mg PO BID [facility] Last Admin: 11/22/16 09:08 Dose: 300 mg Insulin Aspart (Novolog Vial Sliding Scale -) 1 vial SQ BIDAC [facility] PRN Reason: Protocol Last Admin: 11/22/16 06:03 Dose: Not Given Isosorbide Mononitrate (Imdur -) 60 mg PO DAILY [facility] Last Admin: 11/22/16 09:08 Dose: 60 mg Levetiracetam (Keppra -) 750 mg PO BID [facility] Last Admin: 11/22/16 09:05 Dose: 750 mg Magnesium Oxide (Mag-Ox -) 400 mg PO BID [facility] Last Admin: 11/22/16 09:08 Dose: 400 mg [id number] Ethyl Esters (Lovaza -) 2 gm PO BID [facility] Last Admin: 11/22/16 09:05 Dose: 2 gm Ramipril (Altace -) 10 mg PO DAILY [facility] Last Admin: 11/22/16 09:05 Dose: 10 mg Senna/Docusate Sodium (Pericolace -) 1 tablet PO HS [facility] Last Admin: 11/21/16 22:23 Dose: 1 tablet - Objective Vital Signs: Vital Signs Temperature 98.2 F 11/22/16 14:11 Pulse Rate 77 11/22/16 14:11 Respiratory Rate 18 11/22/16 14:11 Blood Pressure 111/67 11/22/16 14:11 O2 Sat by Pulse Oximetry (%) 96 11/22/16 09:00 Constitutional: Yes: Well Nourished, No Distress, Calm Cardiovascular: Yes: Regular Rate and Rhythm. No: Gallop, Murmur, Rub Respiratory: Yes: Regular, CTA Bilaterally. No: Rales, Rhonchi, Wheezes Gastrointestinal: Yes: Normal Bowel Sounds, Soft. No: Distention, Tenderness Extremities: Yes: WNL Edema: No Labs: CBC, BMP 11/22/16 06:05 11/22/16 06:05 INR, PTT INR 1.17 (0.82-1.09) H 11/18/16 13:20 Problem List - Problems (1) Chest pain Code(s): R07.9 - CHEST PAIN, UNSPECIFIED Qualifiers: Chest pain type: unspecified Qualified Code(s): R07.9 - Chest pain, unspecified (2) CAD (coronary artery disease) Code(s): I25.10 - ATHSCL HEART DISEASE OF [place] CORONARY ARTERY W/O ANG PCTRS (3) HTN (hypertension) Code(s): I10 - ESSENTIAL (PRIMARY) HYPERTENSION (4) Diabetes Code(s): E11.9 - TYPE 2 DIABETES MELLITUS WITHOUT COMPLICATIONS (5) HLD (hyperlipidemia) Code(s): E78.5 - HYPERLIPIDEMIA, UNSPECIFIED (6) CVA, old, hemiparesis Code(s): I69.359 - HEMIPLGA FOLLOWING CEREBRAL INFARCTION AFFECTING UNSP SIDE (7) Seizure Code(s): R56.9 - UNSPECIFIED CONVULSIONS Assessment/Plan (1) Chest pain Assessment/Plan: -stress test positive -cardiology following -planning on transfer to [facility] Code(s): R07.9 - CHEST PAIN, UNSPECIFIED Qualifiers: Chest pain type: unspecified Qualified Code(s): R07.9 - Chest pain, unspecified (2) CAD (coronary artery disease) Assessment/Plan: -continue medical management -transfer to [facility] for cardiac cath Code(s): I25.10 - ATHSCL HEART DISEASE OF [place] CORONARY ARTERY W/O ANG PCTRS (3) HTN (hypertension) Assessment/Plan: -continue ramipril -continue toprol -continue imdur -continue norvasc Code(s): I10 - ESSENTIAL (PRIMARY) HYPERTENSION (4) Diabetes Assessment/Plan: -diabetic diet -holding metformin Code(s): E11.9 - TYPE 2 DIABETES MELLITUS WITHOUT COMPLICATIONS (5) HLD (hyperlipidemia) Assessment/Plan: -continue lipitor Code(s): E78.5 - HYPERLIPIDEMIA, UNSPECIFIED (6) CVA, old, hemiparesis Assessment/Plan: -continue aspirin and lipitor Code(s): I69.359 - HEMIPLGA FOLLOWING CEREBRAL INFARCTION AFFECTING UNSP SIDE (7) Seizure Assessment/Plan: -continue gabapentin and keppra Code(s): R56.9 - UNSPECIFIED CONVULSIONS
[2016-11-22] MEDS: ATORVASTATIN CA 20 MG TABLET (FP) PO SCH (23:56)
[2016-11-22] MEDS: SENNOSIDES/DOCUSATE COMBO (SENNA PLUS) TABLET (UD) PO SCH (23:56)
[2016-11-23] MEDS: INSULIN SLIDING SCALE (NOVOLOG) 1 VIAL SQ SCH (06:21)
[2016-11-23] MEDS: CYCLOBENZAPRINE HCL 10 MG TABLET (FP) PO SCH (06:22)
[2016-11-23 09:04] VITALS: BP 122/94; PULSE 86; TEMP 98
[2016-11-23] MEDS: GABAPENTIN 300 MG CAPSULE (FP) PO SCH (10:04)
[2016-11-23] MEDS: ASPIRIN 325 MG TABLET PO SCH (10:04)
[2016-11-23] MEDS: amLODIPine BESYLATE 10 MG TABLET (FP) PO SCH (10:04)
[2016-11-23] MEDS: MAGNESIUM OXIDE 400 MG TABLET (FP) PO SCH (10:05)
[2016-11-23] MEDS: levETIRAcetam 250 MG TABLET (FP) PO SCH (10:05)
[2016-11-23] MEDS: ISOSORBIDE MONONITRATE 60 MG TAB.SR.24H (FP) PO SCH (10:05)
[2016-11-23] MEDS: CARVEDILOL 3.125 MG TABLET (FP) PO SCH (10:06)
[2016-11-23] MEDS: RAMIPRIL 5 MG CAPSULE (FP) PO SCH (10:06)
[2016-11-23] MEDS: OMEGA-3 ACID ETHYL ESTERS (FATTY-ACIDS) 1 GM CAPSULE (FP) PO SCH (10:06)
--- NOTE | 2016-11-23 12:17 | DS ---
Physical Examination Vital Signs: Vital Signs Temperature 98 F 11/23/16 09:04 Pulse Rate 86 11/23/16 09:04 Respiratory Rate 20 11/23/16 09:04 Blood Pressure 122/94 11/23/16 09:04 O2 Sat by Pulse Oximetry (%) 96 11/23/16 09:00 Constitutional: Yes: Well Nourished, No Distress, Calm Cardiovascular: Yes: Regular Rate and Rhythm. No: Gallop, Murmur, Rub Respiratory: Yes: Regular, CTA Bilaterally. No: Rales, Rhonchi, Wheezes Gastrointestinal: Yes: Normal Bowel Sounds, Soft. No: Distention, Tenderness Extremities: Yes: WNL Edema: No Labs: CBC, BMP 11/22/16 06:05 11/22/16 06:05 Discharge Summary Reason For Visit: CHEST PAIN Current Active Problems CAD (coronary artery disease) (Acute) CVA, old, hemiparesis (Acute) Chest pain (Acute) Diabetes (Acute) HLD (hyperlipidemia) (Acute) HTN (hypertension) (Acute) Seizure (Acute) Hospital Course: (1) Chest pain Code(s): R07.9 - CHEST PAIN, UNSPECIFIED Qualifiers: Chest pain type: unspecified Qualified Code(s): R07.9 - Chest pain, unspecified (2) CAD (coronary artery disease) Code(s): I25.10 - ATHSCL HEART DISEASE OF [place] CORONARY ARTERY W/O ANG PCTRS (3) HTN (hypertension) Code(s): I10 - ESSENTIAL (PRIMARY) HYPERTENSION (4) Diabetes Code(s): E11.9 - TYPE 2 DIABETES MELLITUS WITHOUT COMPLICATIONS (5) HLD (hyperlipidemia) Code(s): E78.5 - HYPERLIPIDEMIA, UNSPECIFIED (6) CVA, old, hemiparesis Code(s): I69.359 - HEMIPLGA FOLLOWING CEREBRAL INFARCTION AFFECTING UNSP SIDE (7) Seizure Code(s): R56.9 - UNSPECIFIED CONVULSIONS Ms Naranjo is a very pleasant 56 year old female with history of CAD s/p 3v CABG that came in with exertional chest pain. She was admitted to the hospital. She underwent a stress test that was positive. She was seen by cardiology and is now transferred to [facility] for further intervention. She was otherwise continued on her home medications. Condition: Good - Instructions Diet, Activity, Other Instructions: resume previous diet and activity Referrals: Bertin Love MD [Staff Physician] - Mildred العلي MD [Primary Care Provider] - Disposition: TRANSFER ACUTE CARE/OTHER HOSP - Home Medications Comprehensive Discharge Medication List: Ambulatory Orders Amlodipine Besylate [Norvasc -] 10 mg PO DAILY 11/18/16 Cyclobenzaprine HCl [Flexeril 10 mg] 10 mg PO TID 11/18/16 Gabapentin [Neurontin -] 300 mg PO BID 11/18/16 Isosorbide Mononitrate [Imdur -] 60 mg PO DAILY 11/18/16 Levetiracetam [Keppra] 750 mg PO BID 11/18/16 Metformin HCl [Metformin HCl ER] 500 mg PO BID 11/18/16 Ramipril [Altace] 10 mg PO DAILY 11/18/16 Sennosides/Docusate Sodium [Senna Plus Tablet] 1 each PO HS 11/18/16 Aspirin [ASA -] 325 mg PO DAILY tab.chew 11/19/16 Atorvastatin Ca [Lipitor] 5 mg PO HS #30 tablet 11/19/16 Carvedilol [Coreg -] 3.125 mg PO BID #60 tablet 11/19/16 [place]-3 Acid Ethyl Esters [Lovaza -] 2 gm PO BID #60 cap 11/19/16
== END 2016-11-23 12:20 | disposition short-term general hospital (02) | DRG 198 ==
LOC: JER 12:05 → JERBED 15:15 → UNDOADMOB 15:15 → JERBED 11-19 01:08 → J4W 11-19 01:08 → JERBED 11-21 10:26 → OBSVTOIN 11-21 10:26 → J4W 11-21 10:26 → INTOOBSV 11-21 10:26
PROVIDERS: ADMIT Internal Medicine; ATTEND Internal Medicine
DX: I25.10 Atherosclerotic heart disease of native coronary artery without angina pectoris (principal); Z95.1 Presence of aortocoronary bypass graft; R07.9 Chest pain, unspecified; I69.354 Hemiplegia and hemiparesis following cerebral infarction affecting left non-dominant side; E11.9 Type 2 diabetes mellitus without complications; I10 Essential (primary) hypertension; E78.00 Pure hypercholesterolemia, unspecified; R56.9 Unspecified convulsions; Z86.718 Personal history of other venous thrombosis and embolism; R94.39 Abnormal result of other cardiovascular function study
CPT/HCPCS: 36415; 71010-TC; 78452-TC; 80048; 80053; 82550; 82553; 83735; 84100; 84443; 84484; 85025; 85610; 93005; 93010; 93017; 99283-25; A9502; J1245

== ENCOUNTER 2016-12-16 12:51 | Observation (INO) | payer OTHER ==
[2016-12-16] MEDS ORDERED: SODIUM CHLORIDE 500 ML IV STA (13:01)
[2016-12-16] MEDS ORDERED: ASPIRIN 81 MG CHEWABLE TABLETS PO ONE (13:01)
--- NOTE | 2016-12-16 13:01 | PDOC ---
History of Present Illness - General History Source: Patient Exam Limitations: No Limitations - History of Present Illness Initial Comments: 12/16/16 14:19 The patient is a 56 year old female with a significant past medical history of hypertension, hyperlipidemia, diabetes, CAD w/ CABG, and CVA with residual L sided paralysis presenting to the Emergency Department with chest pressure and shortness of breath for about 20 minutes prior to arrival. The patient describes a pressure in her chest, and a pain in her throat, as well as shortness of breath secondary to the pressure. She reports that these symptoms started when moving from her wheelchair to a chair in PT. She admits that she had a cardiac stent placed about 2 or 3 weeks ago, and had a triple bypass in 2014. She also admits to left side paralysis secondary to CVA. She states that she has been compliant with her medications. The patient denies nausea, vomiting, and diarrhea. Patient denies fever, chills , and cough. Patient denies palpitations, or diaphoresis. Patient denies dysuria , hematuria, or urinary frequency. Surgical Hx: cardiac stent (2-3 weeks ago), triple bypass (2014), cholecystectomy <Jenna Ureña - Last Filed: 12/16/16 16:08> <Scott Snow - Last Filed: 12/16/16 16:21> - General Chief Complaint: Chest Pain Stated Complaint: CHEST PAIN Time Seen by Provider: 12/16/16 13:00 Past History <Jenna Ureña - Last Filed: 12/16/16 16:08> - Past Medical History Cardiac Disorders: Yes CVA: Yes (LEFT SIDED PARALYSIS) Diabetes: Yes HTN: Yes Hypercholesterolemia: Yes - Surgical History Cardiac Surgery: Yes (TRIPLE BYPASS stent) Cholecystectomy: Yes - Psycho/Social/Smoking Cessation Hx Anxiety: No Suicidal Ideation: No Smoking History: Never smoked Have you smoked in the past 12 months: No Information on smoking cessation initiated: No Hx Alcohol Use: No Drug/Substance Use Hx: No Substance Use Type: None Hx Substance Use Treatment: No <Scott Snow - Last Filed: 12/16/16 16:21> - Past Medical History Allergies/Adverse Reactions: Allergies Allergy/AdvReac Type Severity Reaction Status Date / Time codeine Allergy Verified 12/16/16 12:55 phenytoin sodium Allergy Verified 12/16/16 13:44 [From Dilantin] phenytoin sodium extended Allergy Verified 12/16/16 13:44 [From Dilantin] lactose AdvReac Verified 12/16/16 12:55 Home Medications: Ambulatory Orders Amlodipine Besylate [Norvasc -] 10 mg PO DAILY 11/18/16 Gabapentin [Neurontin -] 300 mg PO BID 11/18/16 Isosorbide Mononitrate [Imdur -] 60 mg PO DAILY 11/18/16 Levetiracetam [Keppra] 750 mg PO BID 11/18/16 Metformin HCl [Metformin HCl ER] 500 mg PO BID 11/18/16 Ramipril [Altace] 10 mg PO DAILY 11/18/16 Sennosides/Docusate Sodium [Senna Plus Tablet] 1 each PO HS 11/18/16 Aspirin [ASA -] 325 mg PO DAILY tab.chew 11/19/16 Carvedilol [Coreg -] 3.125 mg PO BID #60 tablet 11/19/16 [place]-3 Acid Ethyl Esters [Lovaza -] 2 gm PO BID #60 cap 11/19/16 Atorvastatin Ca [Lipitor] 20 mg PO HS 12/16/16 Clopidogrel Bisulfate [Plavix -] 75 mg PO DAILY 12/16/16 Review of Systems - Review of Systems Able to Perform ROS?: Yes Comments:: 12/16/16 14:20 GENERAL/CONSTITUTIONAL: No fever or chills. No weakness. HEAD, EYES, EARS, NOSE AND THROAT: + pain radiating to throat. No change in vision. No ear pain or discharge. No sore throat. CARDIOVASCULAR: + chest pressure, + shortness of breath. No palpitations. RESPIRATORY: No cough, wheezing, or hemoptysis. GASTROINTESTINAL: No nausea, vomiting, diarrhea or constipation. GENITOURINARY: No dysuria, frequency, or change in urination. MUSCULOSKELETAL: No joint or muscle swelling or pain. No neck or back pain. SKIN: No rash NEUROLOGIC: + left side paralysis (chronic). No headache, vertigo, loss of consciousness, or change in strength/sensation. ENDOCRINE: No increased thirst. No abnormal weight change. HEMATOLOGIC/LYMPHATIC: No anemia, easy bleeding, or history of blood clots. ALLERGIC/IMMUNOLOGIC: No hives or skin allergy. <Jenna Ureña - Last Filed: 12/16/16 16:08> *Physical Exam - Vital Signs Last Vital Signs Temp Pulse Resp BP Pulse Ox 98.7 F 87 20 132/100 99 12/16/16 12:55 12/16/16 12:55 12/16/16 12:55 12/16/16 12:55 12/16/16 12:55 - Physical Exam Comments: 12/16/16 14:47 GENERAL: Awake, alert, and fully oriented, in no acute distress. Interrupted speech secondary to shortness of breath. HEAD: No signs of trauma EYES: PERRLA, EOMI, sclera anicteric, conjunctiva clear ENT: Auricles normal inspection, hearing grossly normal, nares patent, oropharynx clear without exudates. Moist mucosa NECK: Normal ROM, supple, no lymphadenopathy, JVD, or masses LUNGS: Breath sounds equal, clear to auscultation bilaterally. No wheezes, and no crackles HEART: Regular rate and rhythm, normal S1 and S2, no murmurs, rubs or gallops ABDOMEN: Soft, nontender, normoactive bowel sounds. No guarding, no rebound. No masses EXTREMITIES: Left side UE MS 1/5, LE MS 1/5 secondary to CVA. No sensation to left side of body, left extremities. Normal range of motion to right side. No edema. No clubbing or cyanosis. No cords, erythema, or tenderness NEUROLOGICAL: Cranial nerves II through XII grossly intact. SKIN: Warm, Dry, normal turgor, no rashes or lesions noted. Midline chest scar. <Jenna Ureña - Last Filed: 12/16/16 16:08> - Vital Signs Last Vital Signs Temp Pulse Resp BP Pulse Ox 98.7 F 87 20 132/100 99 12/16/16 12:55 12/16/16 12:55 12/16/16 12:55 12/16/16 12:55 12/16/16 12:55 <Scott Snow - Last Filed: 12/16/16 16:21> Heart Score/ECG Review #1 ECG reviewed & interpreted by me at: 13:24 (EKG reviewed by Dr. Snow IMPRESSION: Normal sinus rhytm, unspecific changes. ) <Jenna Ureña - Last Filed: 12/16/16 16:08> ED Treatment Course - LABORATORY CBC & Chemistry Diagram: 12/16/16 13:15 12/16/16 13:15 - Medications Given in the ED: ED Medications Discontinued Medications Generic Name Dose Route Start Last Admin Trade Name Nory PRKenji Reason Stop Dose Admin Aspirin 162 mg 12/16/16 13:01 12/16/16 13:23 Asa - PO 12/16/16 13:02 162 mg ONCE ONE Administration <Jenna Ureña - Last Filed: 12/16/16 16:08> - LABORATORY CBC & Chemistry Diagram: 12/16/16 13:15 12/16/16 13:15 <Scott Snow - Last Filed: 12/16/16 16:21> Medical Decision Making - Medical Decision Making 12/16/16 15:53 Dr. Wiley was microblogged at 3:57. Awaiting call back. 12/16/16 16:04 Dr. Wiley returned call and spoke to Dr. Snow about the patient's care. Dr. Traore was called at her office at 4:05, Dr. Love is here in the hospital. Dr. Love was overhead paged at 4:06. 12/16/16 16:07 Dr. Traore returned call at 4:[address] Snow about the patient's admission. <Jenna Ureña - Last Filed: 12/16/16 16:08> *DC/Admit/Observation/Transfer - Attestations Scribe Attestion: 12/16/16 14:22 Documentation prepared by Jenna Ureña, acting as medical cash poster for Scott Snow DO. <Jenna Ureña - Last Filed: 12/16/16 16:08> - Discharge Dispostion Admit: Yes - Attestations Physician Attestion: 12/16/16 13:00 I, Dr. Scott Snow, attest that this document has been prepared under my direction and personally reviewed by me in its entirety. I further attest, that it accurately reflects all work, treatment, procedures and medical decision -making performed by me. <Scott Snow - Last Filed: 12/16/16 16:21> Diagnosis at time of Disposition: Acute coronary syndrome HLD (hyperlipidemia) Qualifiers: Hyperlipidemia type: unspecified Qualified Code(s): E78.5 - Hyperlipidemia, unspecified CAD (coronary artery disease) Qualifiers: Coronary Disease-Associated Artery/Lesion type: unspecified vessel or lesion type [place] vs. transplanted heart: [place] heart Associated angina: with unstable angina Qualified Code(s): I25.110 - Atherosclerotic heart disease of [place] coronary artery with unstable angina pectoris Diabetes Qualifiers: Diabetes mellitus type: type 2 Diabetes mellitus complication status: with unspecified complications Diabetes mellitus snf insulin use: with snf use Qualified Code(s): E11.8 - Type 2 diabetes mellitus with unspecified complications; Z79.4 - halfway (current) use of insulin - Discharge Dispostion Condition at time of disposition: Improved - Referrals Referrals: Mildred العلي MD [Primary Care Provider] -
[2016-12-16] MEDS ORDERED: ASPIRIN 81 MG CHEWABLE TABLETS ONE (13:12)
[2016-12-16 13:19] VITALS: BMI 26.1
[2016-12-16 13:34] LABS: BASOPHIL 0.7 % (0-2.0); EOSINOPHIL 1.6 % (0-4.5); MCH 28.4 pg (25.7-33.7); MCHC 34.3 g/dl (32.0-36.0); MEAN CELL VOLUME 82.8 fl (80-96); NEUTROPHILS 43.7 % (42.8-82.8); PLATELET COUNT 217 K/MM3 (134-434); WHITE BLOOD COUNT 4.5 K/mm3 (4.0-10.0)
[2016-12-16 13:49] LABS: ALBUMIN 4.1 g/dl (3.4-5.0); ANION GAP 9 (8-16); BILIRUBIN,TOTAL 0.5 mg/dL (0.2-1.0); CALCIUM 8.9 mg/dL (8.5-10.1); CO2 27 mmol/L (21-32); CREATININE 0.9 mg/dL (0.55-1.02); GLUCOSE,RANDOM 100 mg/dL (74-106); MAGNESIUM 1.5 mg/dL (1.8-2.4); SGOT/AST 19 U/L (15-37); SGPT/ALT 25 U/L (12-78); TOT PROT 7.9 g/dl (6.4-8.2)
[2016-12-16 13:52] LABS: ALK PHOS 72 U/L (45-117); INR 1.06 (0.82-1.09); PROTHROMBIN TIME (PATIENT) 11.7 SEC (9.98-11.88); TROPONIN I 0.03 ng/ml (0.00-0.05)
[2016-12-16 13:55] LABS: ACTIVATED PTT 32.9 SECONDS (26.9-34.4)
[2016-12-16] MEDS ORDERED: diphenhydrAMINE HCL 12.5 MG/5 ML UNIT-DOSE CUPS PO ONE (13:57)
[2016-12-16] MEDS ORDERED: RANITIDINE HCL 150 MG/10 ML UNIT-DOSE CUP PO ONE (13:57)
[2016-12-16] MEDS ORDERED: ONDANSETRON 4 MG/2 ML VIAL IVPB ONE (13:57)
[2016-12-16] MEDS ORDERED: LIDOCAINE VISCOUS 2% ORAL/TOP 100 ML BOTTLE MM ONE (13:57)
[2016-12-16] MEDS ORDERED: diphenhydrAMINE HCL 12.5 MG/5 ML BULK BOTTLE ONE (14:08)
[2016-12-16] MEDS ORDERED: ONDANSETRON 4 MG/2 ML VIAL ONE (14:08)
[2016-12-16] MEDS ORDERED: RANITIDINE HCL 150 MG TABLET (FP) ONE (14:08)
[2016-12-16] MEDS ORDERED: MAG HYDROX/AL HYDROX/SIMETH 355 ML ORAL.SUSP PO ONE (14:12)
[2016-12-16] MEDS ORDERED: MAG HYDROX/AL HYDROX/SIMETH 30 ML UNIT-DOSE CUP ONE (14:13)
--- NOTE | 2016-12-16 15:50 | EKG ---
Test Reason : Blood Pressure : / mmHG Vent. Rate : 078 BPM Atrial Rate : 078 BPM P-R Int : 142 ms QRS Dur : 090 ms QT Int : 390 ms P-R-T Axes : 018 -37 106 degrees QTc Int : 444 ms NORMAL SINUS RHYTHM POSSIBLE LEFT ATRIAL ENLARGEMENT LEFT AXIS DEVIATION T WAVE ABNORMALITY, CONSIDER LATERAL ISCHEMIA ABNORMAL ECG WHEN COMPARED WITH ECG OF 18-NOV-2016 12:08, NO SIGNIFICANT CHANGE WAS FOUND Confirmed by JESSICA GERARDO, SHELLEY ([id number]) on 12/16/2016 3:50:06 PM Referred By: Confirmed By:SHELLEY LOPEZ MD
[2016-12-16] MEDS ORDERED: ONDANSETRON 4 MG/2 ML VIAL IVPB PRN (16:27)
[2016-12-16] MEDS ORDERED: ACETAMINOPHEN 325 MG TABLET (FP) PO PRN (16:27)
--- NOTE | 2016-12-16 16:45 | HP ---
Admitting History and Physical - Primary Care Physician PCP: Mildred العلي - Admission Chief Complaint: I'm having chest pain History of Present Illness: Ms Naranjo is a very pleasant 56 year old female who comes in with chest pain. She says she was at PT and developed sharp pain in her chest that radiated up to her throat. It was left sided and a 7/10. She had nausea without vomiting and shortness of breath associated with it. She denies fevers, chills, lightheadedness, dizziness, palpitations, anxiety, fluttering, abdominal pain, constipation, diarrhea, difficulty or pain on urination, or swelling. She says the pain is similar to the pain she had on last admission that resulted in a stent. 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 Cardiovascular: Yes: CAD, HTN, Hyperlipdemia Endocrine: Yes: Diabetes Mellitus - Past Surgical History Past Surgical History: Yes: CABG, Cholecystectomy, Stent - Smoking History Smoking history: Never smoked Have you smoked in the past 12 months: No - Alcohol/Substance Use Hx Alcohol Use: No History of Substance Use: reports: None - Social History Usual Living Arrangement: Yes: Assisted Living ADL: Support Services History of Recent Travel: No Home Medications - Allergies Allergies/Adverse Reactions: Allergies Allergy/AdvReac Type Severity Reaction Status Date / Time codeine Allergy Verified 12/16/16 12:55 phenytoin sodium Allergy Verified 12/16/16 13:44 [From Dilantin] phenytoin sodium extended Allergy Verified 12/16/16 13:44 [From Dilantin] lactose AdvReac Verified 12/16/16 12:55 - Home Medications Home Medications: Ambulatory Orders Amlodipine Besylate [Norvasc -] 10 mg PO DAILY 11/18/16 Gabapentin [Neurontin -] 300 mg PO BID 11/18/16 Isosorbide Mononitrate [Imdur -] 60 mg PO DAILY 11/18/16 Levetiracetam [Keppra] 750 mg PO BID 11/18/16 Metformin HCl [Metformin HCl ER] 500 mg PO BID 11/18/16 Ramipril [Altace] 10 mg PO DAILY 11/18/16 Sennosides/Docusate Sodium [Senna Plus Tablet] 1 each PO HS 11/18/16 Aspirin [ASA -] 325 mg PO DAILY tab.chew 11/19/16 Carvedilol [Coreg -] 3.125 mg PO BID #60 tablet 11/19/16 [place]-3 Acid Ethyl Esters [Lovaza -] 2 gm PO BID #60 cap 11/19/16 Atorvastatin Ca [Lipitor] 20 mg PO HS 12/16/16 Clopidogrel Bisulfate [Plavix -] 75 mg PO DAILY 12/16/16 Family Disease History - Family Disease History Family Disease History: Diabetes: Grandparent, Heart Disease: Father (pacemaker) , Other: Mother (HTN) Review of Systems Findings/Remarks: Full review of systems obtained, as per HPI and otherwise negative. Physical Examination Vital Signs: Vital Signs Temperature 98.7 F 12/16/16 12:55 Pulse Rate 69 12/16/16 14:46 Respiratory Rate 16 12/16/16 14:46 Blood Pressure 120/83 12/16/16 14:46 O2 Sat by Pulse Oximetry (%) 96 12/16/16 14:46 Constitutional: Yes: Well Nourished, No Distress, Calm Eyes: Yes: Conjunctiva Clear, EOM Intact, PERRL HENT: Yes: Atraumatic, Normocephalic Cardiovascular: Yes: Regular Rate and Rhythm. No: Gallop, Murmur, Rub Respiratory: Yes: Regular, CTA Bilaterally. No: Rales, Rhonchi, Wheezes Gastrointestinal: Yes: Normal Bowel Sounds, Soft. No: Distention, Tenderness Extremities: Yes: WNL Edema: No Labs: CBC, BMP 12/16/16 13:15 12/16/16 13:15 Imaging - Results Chest X-ray: Report Reviewed, Image Reviewed EKG: Image Reviewed Problem List - Problems (1) Chest pain Assessment/Plan: -similar to pain she presented with last admission -stent placed at that time -case d/w cardiology who will see -admit to telemetry observation -continue cardiac medications -cardiac enzymes x3 Code(s): R07.9 - CHEST PAIN, UNSPECIFIED (2) CAD (coronary artery disease) Assessment/Plan: -with CABG and recent stent -continue aspirin and plavix -on coreg, imdur, ramipril, and lipitor Code(s): I25.10 - ATHSCL HEART DISEASE OF [place] CORONARY ARTERY W/O ANG PCTRS Qualifiers: Coronary Disease-Associated Artery/Lesion type: unspecified vessel or lesion type [place] vs. transplanted heart: [place] heart Associated angina: with unstable angina Qualified Code(s): I25.110 - Atherosclerotic heart disease of [place] coronary artery with unstable angina pectoris (3) CVA, old, hemiparesis Assessment/Plan: -stable Code(s): I69.359 - HEMIPLGA FOLLOWING CEREBRAL INFARCTION AFFECTING UNSP SIDE (4) Diabetes Assessment/Plan: -diabetic diet -continue metformin -FSBS and SSI Code(s): E11.9 - TYPE 2 DIABETES MELLITUS WITHOUT COMPLICATIONS Qualifiers: Diabetes mellitus type: type 2 Diabetes mellitus complication status: with unspecified complications Diabetes mellitus custodial insulin use: 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
[2016-12-16 18:37] LABS: URINE APPEARANCE CLEAR; URINE BILIRUBIN NEGATIVE (NEGATIVE); URINE BLOOD NEGATIVE (NEGATIVE); URINE GLUCOSE (UA) NEGATIVE (NEGATIVE); URINE KETONE NEGATIVE (NEGATIVE); URINE LEUK ESTERASE NEGATIVE (NEGATIVE); URINE NITRITE NEGATIVE (NEGATIVE); URINE PROTEIN NEGATIVE (NEGATIVE); URINE UROBILINOGEN 0.2 E.U/dl E.U./dl (0.2-1.0)
[2016-12-16 18:42] LABS: URINE COLOR YELLOW
[2016-12-16] MEDS ORDERED: PATIENT'S OWN MEDICATION (NON-FORMULARY) (Metformin Hcl [Metformin Hcl Er] 500 MG) PO SCH (22:00)
[2016-12-16] MEDS: DOCUSATE SODIUM 100 MG CAPSULE (FP) PO SCH (22:09)
[2016-12-16] MEDS: OMEGA-3 ACID ETHYL ESTERS (FATTY-ACIDS) 1 GM CAPSULE (FP) PO SCH (22:09)
[2016-12-16] MEDS: GABAPENTIN 300 MG CAPSULE (FP) PO SCH (22:09)
[2016-12-16] MEDS: SENNOSIDES/DOCUSATE COMBO (SENNA PLUS) TABLET (UD) PO SCH (22:09)
[2016-12-16] MEDS: ATORVASTATIN CA 20 MG TABLET (FP) PO SCH (22:09)
[2016-12-16] MEDS: CARVEDILOL 3.125 MG TABLET (FP) PO SCH (22:09)
[2016-12-16] MEDS: levETIRAcetam 250 MG TABLET (FP) PO SCH (22:09)
[2016-12-16] MEDS: INSULIN SLIDING SCALE (NOVOLOG) 1 VIAL SQ SCH (22:16)
[2016-12-17 00:13] LABS: TROPONIN I 0.03 ng/ml (0.00-0.05)
[2016-12-17] MEDS: INSULIN SLIDING SCALE (NOVOLOG) 1 VIAL SQ SCH ×4 (06:34→21:08)
[2016-12-17 07:29] LABS: BASOPHIL 0.5 % (0-2.0); EOSINOPHIL 1.4 % (0-4.5); MCH 28.9 pg (25.7-33.7); MCHC 34.5 g/dl (32.0-36.0); MEAN CELL VOLUME 83.6 fl (80-96); NEUTROPHILS 49.3 % (42.8-82.8); PLATELET COUNT 210 K/MM3 (134-434); RDW 12.9 % (11.6-15.6); WHITE BLOOD COUNT 3.9 K/mm3 (4.0-10.0)
[2016-12-17 07:57] LABS: ANION GAP 9 (8-16); CALCIUM 8.8 mg/dL (8.5-10.1); CO2 30 mmol/L (21-32); GLUCOSE,RANDOM 104 mg/dL (74-106); MAGNESIUM 1.6 mg/dL (1.8-2.4)
[2016-12-17 07:59] LABS: CREATININE 0.9 mg/dL (0.55-1.02); PHOSPHOROUS 3.4 mg/dL (2.5-4.9)
[2016-12-17] MEDS: DOCUSATE SODIUM 100 MG CAPSULE (FP) PO SCH ×2 (09:06→21:08)
[2016-12-17] MEDS: CLOPIDOGREL BISULFATE 75 MG TABLET (FP) PO SCH (09:06)
[2016-12-17] MEDS: ASPIRIN 325 MG TABLET PO SCH (09:06)
[2016-12-17] MEDS: GABAPENTIN 300 MG CAPSULE (FP) PO SCH ×2 (09:06→21:10)
[2016-12-17] MEDS: levETIRAcetam 250 MG TABLET (FP) PO SCH ×2 (09:06→21:09)
[2016-12-17] MEDS: OMEGA-3 ACID ETHYL ESTERS (FATTY-ACIDS) 1 GM CAPSULE (FP) PO SCH ×2 (09:06→21:09)
[2016-12-17] MEDS: RAMIPRIL 5 MG CAPSULE (FP) PO SCH (09:06)
[2016-12-17] MEDS: amLODIPine BESYLATE 10 MG TABLET (FP) PO SCH (09:06)
[2016-12-17] MEDS: CARVEDILOL 3.125 MG TABLET (FP) PO SCH ×2 (09:06→21:08)
[2016-12-17] MEDS: POLYETHYLENE GLYCOL 3350 119 GM BTL PO SCH (09:07)
[2016-12-17 09:38] LABS: TROPONIN I 0.03 ng/ml (0.00-0.05)
[2016-12-17] MEDS ORDERED: PATIENT'S OWN MEDICATION (NON-FORMULARY) (Ramipril [Altace] 10 MG) PO SCH (10:00)
[2016-12-17] MEDS ORDERED: ISOSORBIDE MONONITRATE 60 MG TAB.SR.24H (FP) PO SCH ×2 (10:00→10:33)
--- NOTE | 2016-12-17 10:31 | CON.CARD ---
Cardiology Consult (text) - Consultation Consultation Note: Consultation Note: CC: CP hpi: 56 yo f with h/o Coronary artery disease s/p CABG 02/2014 and pci 11/2016 after +mibi, htn, hld, cerebrovascular disease (TIA in 2013, ischemic right posterior temporo-parietal stroke in 05/2015 with hemorrhagic conversion now with residual left sided weakness/numbness and complicated by post-CVA seizures - seeing Dr Mccarthy), lt innominate vein injury repair 08/2014, Left UE DVT s/ p 6 months of coumadin, GERD, Cholecystectomy who p/w CP. Pt here last month for cp and had abnormal mibi so sent for cath and had pci done. [place] well since until yesterday when sitting down prior to starting PT and felt choking sensation in throat (similar to last month). No cp, sob, palps, dizzy, loc, pnd, orthopnea, le edema. Came to ER and choking sensation resolved on own. Feels ok this AM. Sees me for cardio. pmhx/pshx: per hpi Social history former smoker Family Disease History: Diabetes: Grandparent, Heart Disease: Father (pacemaker) , Other: Mother (HTN) ros: per hpi; no vomit, diarrhea, gib, hematuria, hawkins, vision changes, dysuria, cough, nasal congestion - Allergies Allergies/Adverse Reactions: Allergies Allergy/AdvReac Type Severity Reaction Status Date / Time codeine Allergy Verified 12/16/16 12:55 phenytoin sodium Allergy Verified 12/16/16 13:44 [From Dilantin] phenytoin sodium extended Allergy Verified 12/16/16 13:44 [From Dilantin] lactose AdvReac Verified 12/16/16 12:55 Home Medications Medication Instructions Recorded Amlodipine Besylate [Norvasc -] 10 mg PO DAILY 11/18/16 Gabapentin [Neurontin -] 300 mg PO BID 11/18/16 Isosorbide Mononitrate [Imdur -] 60 mg PO DAILY 11/18/16 Levetiracetam [Keppra] 750 mg PO BID 11/18/16 Metformin HCl [Metformin HCl ER] 500 mg PO BID 11/18/16 Ramipril [Altace] 10 mg PO DAILY 11/18/16 Sennosides/Docusate Sodium [Senna 1 each PO HS 11/18/16 Plus Tablet] Aspirin [ASA -] 325 mg PO DAILY tab.chew 11/19/16 Carvedilol [Coreg -] 3.125 mg PO BID #60 tablet 11/19/16 Stoddard-3 Acid Ethyl Esters [Lovaza 2 gm PO BID #60 cap 11/19/16 -] Atorvastatin Ca [Lipitor] 20 mg PO HS 12/16/16 Clopidogrel Bisulfate [Plavix -] 75 mg PO DAILY 12/16/16 Vital Signs Period Temp Pulse Resp BP Sys/[place] Pulse Ox Last 24 Hr 97 F-98.7 F 58-87 16-20 103-132/66-100 96-99 nad, calm jvd flat, neck supple ctab, nl effort rrr nl s1, s2 no mrg + bs soft nt nd ext without e/c/c + dp/pt no carotid bruits aaox3 no jaundice, diaphoresis ++ weakness of LUE, + weakness of LLE Laboratory Last Values WBC 3.9 K/mm3 (4.0-10.0) L 12/17/16 06:07 RBC 4.01 M/mm3 (3.60-5.2) 12/17/16 06:07 Hgb 11.6 GM/dL (10.7-15.3) 12/17/16 06:07 Hct 33.5 % (32.4-45.2) 12/17/16 06:07 MCV 83.6 fl (80-96) 12/17/16 06:07 MCHC 34.5 g/dl (32.0-36.0) 12/17/16 06:07 RDW 12.9 % (11.6-15.6) 12/17/16 06:07 Plt Count 210 K/MM3 (134-434) 12/17/16 06:07 MPV 7.0 fl (7.5-11.1) L 12/17/16 06:07 Neutrophils % 49.3 % (42.8-82.8) 12/17/16 06:07 Lymphocytes % 41.9 % (8-40) H 12/17/16 06:07 Monocytes % 6.9 % (3.8-10.2) 12/17/16 06:07 Eosinophils % 1.4 % (0-4.5) 12/17/16 06:07 Basophils % 0.5 % (0-2.0) 12/17/16 06:07 INR 1.06 (0.82-1.09) 12/16/16 13:15 PTT (Actin FS) 32.9 SECONDS (26.9-34.4) 12/16/16 13:15 Sodium 141 mmol/L (136-145) 12/17/16 06:07 Potassium 3.8 mmol/L (3.5-5.1) 12/17/16 06:07 Chloride 102 mmol/L (98-107) 12/17/16 06:07 Carbon Dioxide 30 mmol/L (21-32) 12/17/16 06:07 Anion Gap 9 (8-16) 12/17/16 06:07 BUN 18 mg/dL (7-18) D 12/17/16 06:07 Creatinine 0.9 mg/dL (0.55-1.02) 12/17/16 06:07 Creat Clearance w eGFR > 60 (>60) 12/16/16 13:15 POC Glucometer 104 UNITS (()) 12/17/16 05:59 Random Glucose 104 mg/dL (74-106) 12/17/16 06:07 Calcium 8.8 mg/dL (8.5-10.1) 12/17/16 06:07 Phosphorus 3.4 mg/dL (2.5-4.9) 12/17/16 06:07 Magnesium 1.6 mg/dL (1.8-2.4) L 12/17/16 06:07 Total Bilirubin 0.5 mg/dL (0.2-1.0) D 12/16/16 13:15 AST 19 U/L (15-37) 12/16/16 13:15 ALT 25 U/L (12-78) 12/16/16 13:15 Alkaline Phosphatase 72 U/L (45-117) 12/16/16 13:15 Creatine Kinase 271 IU/L (26-192) H 12/17/16 06:07 CK-MB (CK-2) < 1.000 ng/ml (0.5-3.6) 12/17/16 06:07 Troponin I 0.03 ng/ml (0.00-0.05) 12/17/16 06:07 B-Natriuretic Peptide 141.76 pg/ml (5-125) H 12/16/16 13:15 Total Protein 7.9 g/dl (6.4-8.2) 12/16/16 13:15 Albumin 4.1 g/dl (3.4-5.0) 12/16/16 13:15 Lipase 381 U/L (73-393) 12/16/16 13:15 Urine Color Yellow 12/16/16 17:54 Urine Appearance Clear 12/16/16 17:54 Ur Specific [place] 1.025 (1.005-1.025) 12/16/16 17:54 Urine Protein Negative (NEGATIVE) 12/16/16 17:54 Urine Glucose (UA) Negative (NEGATIVE) 12/16/16 17:54 Urine Ketones Negative (NEGATIVE) 12/16/16 17:54 Urine Blood Negative (NEGATIVE) 12/16/16 17:54 Urine Nitrite Negative (NEGATIVE) 12/16/16 17:54 Urine Bilirubin Negative (NEGATIVE) 12/16/16 17:54 Urine Urobilinogen 0.2 e.u/dl E.U./dl (0.2-1.0) 12/16/16 17:54 Ur Leukocyte Esterase Negative (NEGATIVE) 12/16/16 17:54 Blood Type A POSITIVE 12/16/16 13:15 Antibody Screen Negative 12/16/16 13:15 cxr: clear lungs ecg 12/16/16: sr, nl intervals, no st changes, twi i, avl, no sig change from prior office echo 08/2016: mod lvh. nl lv size/fn. Impaired relaxation. nl rv size/ fn. Aneurysmal IAS. 1+ tr. Nl rvsp. tele: sr MPI here 11/27: mod sized, mild intensity anterior ischemia. mild inferior ischemia. nl EF. a/p: 56 yo f with h/o Coronary artery disease s/p CABG 02/2014 and pci 11/2016 after +mibi, htn, hld, cerebrovascular disease (TIA in 2013, ischemic right posterior temporo-parietal stroke in 05/2015 with hemorrhagic conversion now with residual left sided weakness/numbness and complicated by post-CVA seizures - seeing Dr Mccarthy), lt innominate vein injury repair 08/2014, Left UE DVT s/ p 6 months of coumadin, GERD, Cholecystectomy who p/w CP. CP, CAD s/p CABG 08/2014, pci: - trop negative x3. ekg stable vs prior. cp/choking resolved. no signs acs. - similar episode last month and had +mibi that led to cath/pci 11/2016: patent tejada to lad, patent svg to om1, occ svg to rpda, occ svg to lpl1, dandre placed in rpda, residual 60-70% LPL1 - no suggestion of stent thrombosis - pt has significant cad but she was just revascularized without any severe lesions remaining so will attempt med uptitration first to see if can manage symptoms. will continue her current asa/plavix (uninterrupted s/p recent pci), ruben, bb, statin, norvasc. Will increase imdur from 60 to 120 to see if can prevent symptoms. If still symptomatic would try ranexa and if fails med management would have to see if pci of her remaining LPL1 60-70% lesion is feasible. -monitor on tele for another 24 hours to see if cp recurs. HTN - controlled, on current meds. HLD - cont statin prior CVA - with residual left arm weakness - cont ASA, atorva - seizures controlled on keppra. Followed by Dr Mccarthy as outpatient
[2016-12-17] MEDS ORDERED: ISOSORBIDE MONONITRATE 60 MG TAB.SR.24H (FP) PO ONE (10:33)
--- NOTE | 2016-12-17 11:40 | PN ---
Progress Note, Physician Chief Complaint: Ms Naranjo says she is feeling better today. No cp, sob, n/v. Back to baseline. - Current Medication List Current Medications: Active Medications Acetaminophen (Tylenol -) 650 mg PO Q4H PRN PRN Reason: FEVER OR PAIN Amlodipine Besylate (Norvasc -) 10 mg PO DAILY [facility] Last Admin: 12/17/16 09:06 Dose: 10 mg Aspirin (Asa -) 325 mg PO DAILY [facility] Last Admin: 12/17/16 09:06 Dose: 325 mg Atorvastatin Calcium (Lipitor -) 20 mg PO HS [facility] Last Admin: 12/16/16 22:09 Dose: 20 mg Carvedilol (Coreg -) 3.125 mg PO BID [facility] Last Admin: 12/17/16 09:06 Dose: 3.125 mg Clopidogrel Bisulfate (Plavix -) 75 mg PO DAILY [facility] Last Admin: 12/17/16 09:06 Dose: 75 mg Docusate Sodium (Colace -) 100 mg PO BID [facility] Last Admin: 12/17/16 09:06 Dose: 100 mg Gabapentin (Neurontin -) 300 mg PO BID [facility] Last Admin: 12/17/16 09:06 Dose: 300 mg Insulin Aspart (Novolog Vial Sliding Scale -) 1 vial SQ ACHS [facility] PRN Reason: Protocol Last Admin: 12/17/16 11:20 Dose: Not Given Isosorbide Mononitrate (Imdur -) 120 mg PO DAILY [facility] Levetiracetam (Keppra -) 750 mg PO BID [facility] Last Admin: 12/17/16 09:06 Dose: 750 mg Metformin HCl (Glucophage Xr -) 500 mg PO BIDI [facility] Last Admin: 12/17/16 06:51 Dose: 500 mg Oqkwe-1-Mbor Ethyl Esters (Lovaza -) 2 gm PO BID [facility] Last Admin: 12/17/16 09:06 Dose: 2 gm Ondansetron HCl (Zofran Injection) 4 mg IVPB Q6H PRN PRN Reason: NAUSEA Polyethylene Glycol (Miralax (For Daily Use) -) 17 gm PO DAILY [facility] Last Admin: 12/17/16 09:07 Dose: Not Given Ramipril (Altace -) 10 mg PO DAILY [facility] Last Admin: 12/17/16 09:06 Dose: 10 mg Senna/Docusate Sodium (Pericolace -) 1 tablet PO HS [facility] Last Admin: 12/16/16 22:09 Dose: 1 tablet - Objective Vital Signs: Vital Signs Temperature 97.9 F 12/17/16 07:54 Pulse Rate 64 12/17/16 09:20 Respiratory Rate 18 12/17/16 08:00 Blood Pressure 128/91 12/17/16 07:54 O2 Sat by Pulse Oximetry (%) 99 12/17/16 09:20 Constitutional: Yes: Well Nourished, No Distress, Calm Cardiovascular: Yes: Regular Rate and Rhythm. No: Gallop, Murmur, Rub Respiratory: Yes: Regular, CTA Bilaterally. No: Rales, Rhonchi, Wheezes Gastrointestinal: Yes: Normal Bowel Sounds, Soft. No: Distention, Tenderness Extremities: Yes: WNL Edema: No Labs: CBC, BMP 12/17/16 06:07 12/17/16 06:07 INR, PTT INR 1.06 (0.82-1.09) 12/16/16 13:15 Problem List - Problems (1) Chest pain Code(s): R07.9 - CHEST PAIN, UNSPECIFIED (2) CAD (coronary artery disease) Code(s): I25.10 - ATHSCL HEART DISEASE OF [place] CORONARY ARTERY W/O ANG PCTRS Qualifiers: Coronary Disease-Associated Artery/Lesion type: unspecified vessel or lesion type [place] vs. transplanted heart: [place] heart Associated angina: with unstable angina Qualified Code(s): I25.110 - Atherosclerotic heart disease of [place] coronary artery with unstable angina pectoris (3) CVA, old, hemiparesis Code(s): I69.359 - HEMIPLGA FOLLOWING CEREBRAL INFARCTION AFFECTING UNSP SIDE (4) Diabetes Code(s): E11.9 - TYPE 2 DIABETES MELLITUS WITHOUT COMPLICATIONS Qualifiers: Diabetes mellitus type: type 2 Diabetes mellitus complication status: with unspecified complications Diabetes mellitus retirement insulin use: with parts counterman use Qualified Code(s): E11.8 - Type 2 diabetes mellitus with unspecified complications; Z79.4 - superintendent terminal (current) use of insulin (5) HLD (hyperlipidemia) Code(s): E78.5 - HYPERLIPIDEMIA, UNSPECIFIED Qualifiers: Hyperlipidemia type: unspecified Qualified Code(s): E78.5 - Hyperlipidemia, unspecified (6) HTN (hypertension) Code(s): I10 - ESSENTIAL (PRIMARY) HYPERTENSION (7) Seizure Code(s): R56.9 - UNSPECIFIED CONVULSIONS Assessment/Plan (1) Chest pain Assessment/Plan: -appreciate cardiology assistance, note reviewed -increase imdur to 120mg daily, first dose today -monitor for recurrence of chest pain -if no further chest pain, possible discharge if approved by cardiology Code(s): R07.9 - CHEST PAIN, UNSPECIFIED (2) CAD (coronary artery disease) Assessment/Plan: -with CABG and recent stent -continue aspirin and plavix -on coreg, ramipril, and lipitor -imdur increased Code(s): I25.10 - ATHSCL HEART DISEASE OF [place] CORONARY ARTERY W/O ANG PCTRS Qualifiers: Coronary Disease-Associated Artery/Lesion type: unspecified vessel or lesion type [place] vs. transplanted heart: [place] heart Associated angina: with unstable angina Qualified Code(s): I25.110 - Atherosclerotic heart disease of [place] coronary artery with unstable angina pectoris (3) CVA, old, hemiparesis Assessment/Plan: -stable Code(s): I69.359 - HEMIPLGA FOLLOWING CEREBRAL INFARCTION AFFECTING UNSP SIDE (4) Diabetes Assessment/Plan: -diabetic diet -continue metformin -FSBS and SSI Code(s): E11.9 - TYPE 2 DIABETES MELLITUS WITHOUT COMPLICATIONS Qualifiers: Diabetes mellitus type: type 2 Diabetes mellitus complication status: with unspecified complications Diabetes mellitus parts counterman insulin use: with parts counterman use Qualified Code(s): E11.8 - Type 2 diabetes mellitus with unspecified complications; Z79.4 - superintendent terminal (current) use of insulin (5) HLD (hyperlipidemia) Assessment/Plan: -continue lipitor Code(s): E78.5 - HYPERLIPIDEMIA, UNSPECIFIED Qualifiers: Hyperlipidemia type: unspecified Qualified Code(s): E78.5 - Hyperlipidemia, unspecified (6) HTN (hypertension) Assessment/Plan: -controlled -continue ramipril, amlodipine, and coreg Code(s): I10 - ESSENTIAL (PRIMARY) HYPERTENSION (7) Seizure Assessment/Plan: -continue gabapentin and keppra Code(s): R56.9 - UNSPECIFIED CONVULSIONS
[2016-12-17 12:12] LABS: PH,URINE 5.5 (5.0-8.0)
[2016-12-17] MEDS: ATORVASTATIN CA 20 MG TABLET (FP) PO SCH (21:09)
[2016-12-17] MEDS: SENNOSIDES/DOCUSATE COMBO (SENNA PLUS) TABLET (UD) PO SCH (21:10)
[2016-12-18] MEDS: INSULIN SLIDING SCALE (NOVOLOG) 1 VIAL SQ SCH ×3 (06:40→17:14)
[2016-12-18 07:56] LABS: BASOPHIL 0.4 % (0-2.0); EOSINOPHIL 1.5 % (0-4.5); MCH 28.9 pg (25.7-33.7); MEAN CELL VOLUME 82.6 fl (80-96); MEAN PLT VOLUME 7.1 fl (7.5-11.1); NEUTROPHILS 48.3 % (42.8-82.8); PLATELET COUNT 192 K/MM3 (134-434); WHITE BLOOD COUNT 3.9 K/mm3 (4.0-10.0)
[2016-12-18 08:20] LABS: ANION GAP 10 (8-16); CALCIUM 8.3 mg/dL (8.5-10.1); CO2 28 mmol/L (21-32); CREATININE 0.8 mg/dL (0.55-1.02); GLUCOSE,RANDOM 96 mg/dL (74-106); MAGNESIUM 1.5 mg/dL (1.8-2.4); PHOSPHOROUS 3.3 mg/dL (2.5-4.9)
[2016-12-18] MEDS: ASPIRIN 325 MG TABLET PO SCH (09:17)
[2016-12-18] MEDS: CARVEDILOL 3.125 MG TABLET (FP) PO SCH (09:17)
[2016-12-18] MEDS: levETIRAcetam 250 MG TABLET (FP) PO SCH (09:17)
[2016-12-18] MEDS: GABAPENTIN 300 MG CAPSULE (FP) PO SCH (09:18)
[2016-12-18] MEDS: OMEGA-3 ACID ETHYL ESTERS (FATTY-ACIDS) 1 GM CAPSULE (FP) PO SCH (09:18)
[2016-12-18] MEDS: amLODIPine BESYLATE 10 MG TABLET (FP) PO SCH (09:18)
[2016-12-18] MEDS: RAMIPRIL 5 MG CAPSULE (FP) PO SCH (09:18)
[2016-12-18] MEDS: DOCUSATE SODIUM 100 MG CAPSULE (FP) PO SCH (09:18)
[2016-12-18] MEDS: POLYETHYLENE GLYCOL 3350 119 GM BTL PO SCH (09:18)
[2016-12-18] MEDS: CLOPIDOGREL BISULFATE 75 MG TABLET (FP) PO SCH (09:18)
--- NOTE | 2016-12-18 10:38 | PN ---
Progress Note, Physician History of Present Illness: Patient notes no chest pain now. Had nausea after her metformin got caught in her throat, but notes that now feeling better. Imdur dose was increased. - Current Medication List Current Medications: Active Medications Acetaminophen (Tylenol -) 650 mg PO Q4H PRN PRN Reason: FEVER OR PAIN Amlodipine Besylate (Norvasc -) 10 mg PO DAILY [facility] Last Admin: 12/18/16 09:18 Dose: 10 mg Aspirin (Asa -) 325 mg PO DAILY [facility] Last Admin: 12/18/16 09:17 Dose: 325 mg Atorvastatin Calcium (Lipitor -) 20 mg PO HS [facility] Last Admin: 12/17/16 21:09 Dose: 20 mg Carvedilol (Coreg -) 3.125 mg PO BID [facility] Last Admin: 12/18/16 09:17 Dose: 3.125 mg Clopidogrel Bisulfate (Plavix -) 75 mg PO DAILY [facility] Last Admin: 12/18/16 09:18 Dose: 75 mg Docusate Sodium (Colace -) 100 mg PO BID [facility] Last Admin: 12/18/16 09:18 Dose: 100 mg Gabapentin (Neurontin -) 300 mg PO BID [facility] Last Admin: 12/18/16 09:18 Dose: 300 mg Insulin Aspart (Novolog Vial Sliding Scale -) 1 vial SQ ACHS [facility] PRN Reason: Protocol Last Admin: 12/18/16 06:40 Dose: Not Given Isosorbide Mononitrate (Imdur -) 120 mg PO DAILY [facility] Last Admin: 12/18/16 09:17 Dose: 120 mg Levetiracetam (Keppra -) 750 mg PO BID [facility] Last Admin: 12/18/16 09:17 Dose: 750 mg Metformin HCl (Glucophage Xr -) 500 mg PO BIDI [facility] Last Admin: 12/18/16 06:40 Dose: 500 mg [id number]-[id number] Ethyl Esters (Lovaza -) 2 gm PO BID [facility] Last Admin: 12/18/16 09:18 Dose: 2 gm Ondansetron HCl (Zofran Injection) 4 mg IVPB Q6H PRN PRN Reason: NAUSEA Polyethylene Glycol (Miralax (For Daily Use) -) 17 gm PO DAILY [facility] Last Admin: 12/18/16 09:18 Dose: Not Given Ramipril (Altace -) 10 mg PO DAILY [facility] Last Admin: 12/18/16 09:18 Dose: 10 mg Senna/Docusate Sodium (Pericolace -) 1 tablet PO HS [facility] Last Admin: 12/17/16 21:10 Dose: Not Given - Objective Vital Signs: Vital Signs Temperature 97.8 F 12/18/16 07:54 Pulse Rate 80 12/18/16 07:55 Respiratory Rate 18 12/18/16 08:00 Blood Pressure 134/96 12/18/16 07:55 O2 Sat by Pulse Oximetry (%) 97 12/18/16 08:00 Constitutional: Yes: No Distress, Calm HENT: Yes: Atraumatic, Normocephalic Cardiovascular: Yes: Regular Rate and Rhythm, S1, S2. No: Murmur Respiratory: Yes: Regular, CTA Bilaterally. No: Rales, Rhonchi, Wheezes Gastrointestinal: Yes: Normal Bowel Sounds, Soft. No: Distention, Tenderness Edema: No Neurological: Yes: Pre-Existing Deficit (s/p CVA with hemiparesis/ weakness) Labs: CBC, BMP 12/18/16 06:00 12/18/16 06:00 INR, PTT INR 1.06 (0.82-1.09) 12/16/16 13:15 Assessment/Plan Current Active Problems Acute coronary syndrome (Acute) s/p PTCI with stent placed last week CAD (coronary artery disease) (Acute) CVA, old, hemiparesis (Acute) Chest pain (Acute) Diabetes (Acute) HLD (hyperlipidemia) (Acute) HTN (hypertension) (Acute) Seizure (Acute) -cardio to eval (discharge planning if no further treatment required)
[2016-12-18] MEDS ORDERED: MAGNESIUM OXIDE 400 MG TABLET (FP) PO ONE (10:45)
--- NOTE | 2016-12-18 15:31 | PN ---
Progress Note (short form) - Note Progress Note: CC: CP S: no further chest discomfort. imdur dose increased to 120 mg. no sob, palps , dizziness Current Medications: Active Medications Acetaminophen (Tylenol -) 650 mg PO Q4H PRN PRN Reason: FEVER OR PAIN Amlodipine Besylate (Norvasc -) 10 mg PO DAILY [facility] Last Admin: 12/18/16 09:18 Dose: 10 mg Aspirin (Asa -) 325 mg PO DAILY [facility] Last Admin: 12/18/16 09:17 Dose: 325 mg Atorvastatin Calcium (Lipitor -) 20 mg PO HS [facility] Last Admin: 12/17/16 21:09 Dose: 20 mg Carvedilol (Coreg -) 3.125 mg PO BID [facility] Last Admin: 12/18/16 09:17 Dose: 3.125 mg Clopidogrel Bisulfate (Plavix -) 75 mg PO DAILY [facility] Last Admin: 12/18/16 09:18 Dose: 75 mg Docusate Sodium (Colace -) 100 mg PO BID [facility] Last Admin: 12/18/16 09:18 Dose: 100 mg Gabapentin (Neurontin -) 300 mg PO BID [facility] Last Admin: 12/18/16 09:18 Dose: 300 mg Insulin Aspart (Novolog Vial Sliding Scale -) 1 vial SQ ACHS [facility] PRN Reason: Protocol Last Admin: 12/18/16 06:40 Dose: Not Given Isosorbide Mononitrate (Imdur -) 120 mg PO DAILY [facility] Last Admin: 12/18/16 09:17 Dose: 120 mg Levetiracetam (Keppra -) 750 mg PO BID [facility] Last Admin: 12/18/16 09:17 Dose: 750 mg Metformin HCl (Glucophage Xr -) 500 mg PO BIDI [facility] Last Admin: 12/18/16 06:40 Dose: 500 mg Sxudy-8-Ibef Ethyl Esters (Lovaza -) 2 gm PO BID [facility] Last Admin: 12/18/16 09:18 Dose: 2 gm Ondansetron HCl (Zofran Injection) 4 mg IVPB Q6H PRN PRN Reason: NAUSEA Polyethylene Glycol (Miralax (For Daily Use) -) 17 gm PO DAILY [facility] Last Admin: 12/18/16 09:18 Dose: Not Given Ramipril (Altace -) 10 mg PO DAILY [facility] Last Admin: 12/18/16 09:18 Dose: 10 mg Senna/Docusate Sodium (Pericolace -) 1 tablet PO HS [facility] Last Admin: 12/17/16 21:10 Dose: Not Given Vital Signs - 24 hr 12/18/16 12/18/16 12/18/16 02:00 06:00 07:54 Temperature 98.1 F 98.3 F 97.8 F Pulse Rate 66 67 71 Respiratory 18 18 18 Rate Blood Pressure 114/74 131/80 128/88 O2 Sat by Pulse Oximetry (%) 12/18/16 12/18/16 12/18/16 07:55 08:00 10:32 Temperature Pulse Rate 80 79 Respiratory 18 18 Rate Blood Pressure 134/96 O2 Sat by Pulse 97 95 Oximetry (%) 12/18/16 12/18/16 13:58 17:00 Temperature 98 F 97.8 F Pulse Rate 74 78 Respiratory 18 20 Rate Blood Pressure 131/77 136/91 O2 Sat by Pulse Oximetry (%) Intake & Output 12/16/16 12/17/16 12/18/16 12/19/16 07:59 07:59 07:59 07:59 Intake Total 300 830 250 Balance 300 830 250 Weight 162 lb nad, calm jvd flat, neck supple ctab, nl effort rrr nl s1, s2 no mrg + bs soft nt nd ext without e/c/c + dp/pt no carotid bruits aaox3 no jaundice, diaphoresis ++ weakness of LUE, + weakness of LLE CBC, BMP 12/18/16 06:00 12/18/16 06:00 cxr: clear lungs ecg 12/16/16: sr, nl intervals, no st changes, twi i, avl, no sig change from prior office echo 08/2016: mod lvh. nl lv size/fn. Impaired relaxation. nl rv size/ fn. Aneurysmal IAS. 1+ tr. Nl rvsp. tele: sr MPI here 11/27: mod sized, mild intensity anterior ischemia. mild inferior ischemia. nl EF. a/p: 56 yo f with h/o Coronary artery disease s/p CABG 02/2014 and pci 11/2016 after +mibi, htn, hld, cerebrovascular disease (TIA in 2013, ischemic right posterior temporo-parietal stroke in 05/2015 with hemorrhagic conversion now with residual left sided weakness/numbness and complicated by post-CVA seizures - seeing Dr Mccarthy), lt innominate vein injury repair 08/2014, Left UE DVT s/ p 6 months of coumadin, GERD, Cholecystectomy who p/w CP. CP, CAD s/p CABG 08/2014, pci: - trop negative x3. ekg stable vs prior. cp/choking resolved. no signs acs. - similar episode last month and had +mibi that led to cath/pci 11/2016: patent tejada to lad, patent svg to om1, occ svg to rpda, occ svg to lpl1, dandre placed in rpda, residual 60-70% LPL1 - no suggestion of stent thrombosis - pt has significant cad but she was just revascularized without any severe lesions remaining so will attempt med uptitration first to see if can manage symptoms. will continue her current asa/plavix (uninterrupted s/p recent pci), ruben, bb, statin, norvasc. Increased imdur from 60 to 120 --> no further recurrence of sx's. HTN - controlled, on current meds. HLD - cont statin prior CVA - with residual left arm weakness - cont ASA, atorva - seizures controlled on keppra. Followed by Dr Mccarthy as outpatient would ambulate patient up and down [place] and if still no recurrence of chest discomfort, ok to d/c home from CV perspective with outpatient cards f/u.
[2016-12-18 18:12] VITALS: BP 136/91; PULSE 78; TEMP 97.8
--- NOTE | 2016-12-19 10:54 | DS ---
Physical Examination Vital Signs: Vital Signs Temperature 97.8 F 12/18/16 17:00 Pulse Rate 78 12/18/16 17:00 Respiratory Rate 20 12/18/16 17:00 Blood Pressure 136/91 12/18/16 17:00 O2 Sat by Pulse Oximetry (%) 95 12/18/16 10:32 Labs: CBC, BMP 12/18/16 06:00 12/18/16 06:00 Discharge Summary Reason For Visit: CORINARY ARTERY DISEASE Current Active Problems Acute coronary syndrome (Acute) CAD (coronary artery disease) (Acute) CVA, old, hemiparesis (Acute) Chest pain (Acute) Diabetes (Acute) HLD (hyperlipidemia) (Acute) HTN (hypertension) (Acute) Seizure (Acute) Hospital Course: (see progress note form 12/18/16) Condition: Improved - Instructions Referrals: Mildred العلي MD [Primary Care Provider] - Disposition: HOME HEALTH CARE - Home Medications Comprehensive Discharge Medication List: Ambulatory Orders Amlodipine Besylate [Norvasc -] 10 mg PO DAILY 11/18/16 Gabapentin [Neurontin -] 300 mg PO BID 11/18/16 Levetiracetam [Keppra] 750 mg PO BID 11/18/16 Metformin HCl [Metformin HCl ER] 500 mg PO BID 11/18/16 Ramipril [Altace] 10 mg PO DAILY 11/18/16 Sennosides/Docusate Sodium [Senna Plus Tablet] 1 each PO HS 11/18/16 Aspirin [ASA -] 325 mg PO DAILY tab.chew 11/19/16 Carvedilol [Coreg -] 3.125 mg PO BID #60 tablet 11/19/16 [place]-3 Acid Ethyl Esters [Lovaza -] 2 gm PO BID #60 cap 11/19/16 Atorvastatin Ca [Lipitor] 20 mg PO HS 12/16/16 Clopidogrel Bisulfate [Plavix -] 75 mg PO DAILY 12/16/16 Isosorbide Mononitrate [Imdur -] 120 mg PO DAILY #30 tab 12/18/16
== END 2016-12-18 18:39 | disposition home health service (06) ==
LOC: JER 12:51 → JERBED 16:21 → J4W 17:27
PROVIDERS: ADMIT Internal Medicine; ATTEND Internal Medicine
PROC: 3E033GC Introduction of Other Therapeutic Substance into Peripheral Vein, Percutaneous Approach (ICD-10-PCS; principal; 2016-12-16)
PROC: 3E0337Z Introduction of Electrolytic and Water Balance Substance into Peripheral Vein, Percutaneous Approach (ICD-10-PCS; 2016-12-16)
DX: I24.9 Acute ischemic heart disease, unspecified (principal); R07.9 Chest pain, unspecified; I10 Essential (primary) hypertension; I25.10 Atherosclerotic heart disease of native coronary artery without angina pectoris; E78.5 Hyperlipidemia, unspecified; E11.8 Type 2 diabetes mellitus with unspecified complications; I69.359 Hemiplegia and hemiparesis following cerebral infarction affecting unspecified side; G40.909 Epilepsy, unspecified, not intractable, without status epilepticus; Z95.5 Presence of coronary angioplasty implant and graft; Z95.1 Presence of aortocoronary bypass graft; Z88.5 Allergy status to narcotic agent; Z79.4 Long term (current) use of insulin; Z91.011 Allergy to milk products; Z79.84 Long term (current) use of oral hypoglycemic drugs; Z79.82 Long term (current) use of aspirin
CPT/HCPCS: 36415; 71010-TC; 80048; 80053; 81003; 82550; 82553; 83036; 83690; 83735; 83880; 84100; 84484; 85025; 85610; 85730; 86850; 86900; 86901; 93005; 93010; 99284-25; G0378